=== PATIENT | female | born 1975 | race Two or more races ===

== ENCOUNTER 2022-07-04 14:48 | Emergency (ER) | payer MEDICAID ==
[~2022-07-04] VITALS: Ht 154.9 cm; Wt 65.2 kg
[2022-07-04 15:38] LABS: Basophils # (auto) 0 10 ^3/uL (0-0.2); Basophils % (auto) 0.4 % (0.0-2.0); Eosinophils # (auto) 0.1 10 ^3/uL (0-0.8); Eosinophils % (auto) 1.6 % (0.0-7.0); Hemoglobin 12.2 g/dL (12.2-16.2); Lymphocytes # (auto) 1.7 10 ^3/uL (0.4-5.4); Lymphocytes % (auto) 31.4 % (10.0-50.0); Mean Corpuscular Hemoglobin 28.7 pg (28.0-32.0); Mean Corpuscular Hgb Conc. 33.1 g/dL (32.0-36.0); Mean Corpuscular Volume 86.8 fL (80.0-100.0); Monocytes # (auto) 0.7 10 ^3/uL (0-1.3); Monocytes % (auto) 12.4 % (0.0-12.0); Neutrophils % (auto) 54.2 % (37.0-80.0); Nucleated Red Blood Cells % 0.2 %; Red Blood Cells 4.26 10^6/uL (4.0-5.20); Red Cell Distribution Width 15.1 % (11.8-14.3); White Blood Cell 5.5 10^3/uL (4.4-10.8)
[2022-07-04 15:55] LABS: Calcium 8.5 mg/dL (8.5-10.1); Potassium 3.6 mmol/L (3.5-5.1)
[2022-07-04 15:59] LABS: BUN/Creatinine Ratio 20.3; Bilirubin, Total 0.3 mg/dL (0.2-1.0)
[2022-07-04 16:03] LABS: Urine Bacteria FEW /hpf (None Seen); Urine Blood Negative /uL (Negative); Urine Specific Gravity 1.008 (1.001-1.035); Urine WBC 1 /hpf (0 - 5)
[2022-07-04 17:01] VITALS: BP 130/89
== END 2022-07-04 17:02 | disposition home or self-care (01) ==
LOC: ER 14:48
DX: R07.89 Other chest pain (principal); F41.9 Anxiety disorder, unspecified; R00.2 Palpitations
CPT/HCPCS: 36415; 71045; 80053; 81001; 83880; 84484; 85025; 93005

== ENCOUNTER 2022-07-07 17:15 | Emergency (ER) | payer MEDICAID ==
[~2022-07-07] VITALS: Ht 154.9 cm; Wt 65.0 kg
[2022-07-07] MEDS ORDERED: ACETAMINOPHEN 500 MG TAB PO ONE (18:15)
[2022-07-07 19:03] LABS: Basophils # (auto) 0 10 ^3/uL (0-0.2); Basophils % (auto) 0.4 % (0.0-2.0); Eosinophils # (auto) 0.1 10 ^3/uL (0-0.8); Eosinophils % (auto) 1.1 % (0.0-7.0); Hematocrit 37.3 % (36.0-46.0); Hemoglobin 11.9 g/dL (12.2-16.2); Lymphocytes # (auto) 1.6 10 ^3/uL (0.4-5.4); Lymphocytes % (auto) 25.6 % (10.0-50.0); Mean Corpuscular Hemoglobin 27.7 pg (28.0-32.0); Mean Corpuscular Hgb Conc. 31.8 g/dL (32.0-36.0); Mean Corpuscular Volume 87.1 fL (80.0-100.0); Monocytes # (auto) 0.6 10 ^3/uL (0-1.3); Monocytes % (auto) 10.1 % (0.0-12.0); Neutrophils # (auto) 3.8 10 ^3/uL (1.6-8.6); Neutrophils % (auto) 62.8 % (37.0-80.0); Nucleated Red Blood Cells % 0.1 %; Red Blood Cells 4.28 10^6/uL (4.0-5.20); Red Cell Distribution Width 15.7 % (11.8-14.3); White Blood Cell 6.1 10^3/uL (4.4-10.8)
[2022-07-07 19:18] LABS: Albumin 3.7 g/dL (3.4-5.0); BUN/Creatinine Ratio 47.8; Calcium 9.3 mg/dL (8.5-10.1); Magnesium 2.2 mg/dL (1.6-2.6); Potassium 3.8 mmol/L (3.5-5.1)
[2022-07-07 19:21] LABS: Bilirubin, Total 0.3 mg/dL (0.2-1.0); Total Protein 6.6 g/dL (6.4-8.2)
[2022-07-07 20:07] LABS: Partial Thromboplastin Time 24.4 sec (24.6-33.4)
[2022-07-08] MEDS ORDERED: ACET-1079 PO (00:09)
[2022-07-08] MEDS ORDERED: FAMO20TA10 PO (00:09)
[2022-07-08 01:13] VITALS: BP 138/79
== END 2022-07-08 01:19 | disposition home or self-care (01) ==
LOC: ER 17:23
DX: K52.89 Other specified noninfective gastroenteritis and colitis (principal); M25.561 Pain in right knee; K59.00 Constipation, unspecified; Z20.822 Contact with and (suspected) exposure to COVID-19
CPT/HCPCS: 36415; 71250; 73562; 74176; 80053; 83605; 83735; 83880; 84484; 85025; 85610; 85730; 87040; 87426; 87804; 93005

== ENCOUNTER 2023-01-27 16:01 | Inpatient (IN) | payer MEDICAID ==
[~2023-01-27] VITALS: Ht 154.9 cm; Wt 70.4 kg
[~2023-01-27 16:01] MED LIST: ACET-1079 PO; FAMO20TA10 PO
[2023-01-27 16:33] LABS: Basophils # (auto) 0 10 ^3/uL (0-0.2); Basophils % (auto) 0.7 % (0.0-2.0); Eosinophils # (auto) 0.2 10 ^3/uL (0-0.8); Eosinophils % (auto) 2.7 % (0.0-7.0); Hematocrit 38.1 % (36.0-46.0); Hemoglobin 12.5 g/dL (12.2-16.2); Lymphocytes % (auto) 34.3 % (10.0-50.0); Mean Corpuscular Hemoglobin 29.2 pg (28.0-32.0); Mean Corpuscular Hgb Conc. 32.9 g/dL (32.0-36.0); Mean Corpuscular Volume 88.9 fL (80.0-100.0); Monocytes # (auto) 0.4 10 ^3/uL (0-1.3); Monocytes % (auto) 6.1 % (0.0-12.0); Neutrophils # (auto) 3.3 10 ^3/uL (1.6-8.6); Neutrophils % (auto) 56.2 % (37.0-80.0); Nucleated Red Blood Cells % 0.2 %; Red Blood Cells 4.28 10^6/uL (4.0-5.20); Red Cell Distribution Width 16.2 % (11.8-14.3); White Blood Cell 5.8 10^3/uL (4.4-10.8)
[2023-01-27] MEDS ORDERED: NITROGLYCERIN 0.4 MG SL TAB SL ONE (16:45)
[2023-01-27] MEDS ORDERED: ASPirin 325 MG TAB PO ONE ×2 (16:45→21:15)
[2023-01-27 16:49] LABS: Albumin 3.6 g/dL (3.4-5.0); Calcium 8.4 mg/dL (8.5-10.1); Magnesium 2.7 mg/dL (1.6-2.6); Potassium 3.8 mmol/L (3.5-5.1)
[2023-01-27 16:52] LABS: BUN/Creatinine Ratio 16.9 (10.0-20.0); Bilirubin, Total 0.2 mg/dL (0.2-1.0); Total Protein 6.7 g/dL (6.4-8.2)
[2023-01-27 16:56] LABS: INR 1.02 (0.9-1.15); Partial Thromboplastin Time 26.7 SEC (24.5-34.5); Prothrombin Time 10.7 sec (9.3-11.8)
[2023-01-27] MEDS ORDERED: NITROGLYCERIN 0.4 MG SL TAB SL PRN (19:15)
[2023-01-27] MEDS ORDERED: ONDANSETRON HCL 4 MG/2 ML VIAL IV PRN (19:15)
[2023-01-27] MEDS ORDERED: MORPHINE SULFATE 4 MG/ML SYR/VIAL IV PRN (19:15)
[2023-01-27] MEDS ORDERED: ENOXAPARIN SOD 80 MG/0.8ML SYRINGE SC SCH (20:00)
[2023-01-27] MEDS ORDERED: ACETAMINOPHEN 325 MG TAB PO ONE (21:15)
[2023-01-27] MEDS ORDERED: ATORVASTATIN 20 MG TAB PO SCH (22:00)
[2023-01-28 04:45] LABS: Basophils # (auto) 0 10 ^3/uL (0-0.2); Basophils % (auto) 0.6 % (0.0-2.0); Eosinophils # (auto) 0.2 10 ^3/uL (0-0.8); Eosinophils % (auto) 4.2 % (0.0-7.0); Hematocrit 37.7 % (36.0-46.0); Hemoglobin 12.3 g/dL (12.2-16.2); Lymphocytes # (auto) 2.7 10 ^3/uL (0.4-5.4); Lymphocytes % (auto) 47.6 % (10.0-50.0); Mean Corpuscular Hemoglobin 29.3 pg (28.0-32.0); Mean Corpuscular Hgb Conc. 32.8 g/dL (32.0-36.0); Mean Corpuscular Volume 89.6 fL (80.0-100.0); Monocytes # (auto) 0.4 10 ^3/uL (0-1.3); Monocytes % (auto) 6.7 % (0.0-12.0); Neutrophils # (auto) 2.4 10 ^3/uL (1.6-8.6); Neutrophils % (auto) 40.9 % (37.0-80.0); Nucleated Red Blood Cells % 0.2 %; Red Blood Cells 4.21 10^6/uL (4.0-5.20); Red Cell Distribution Width 16.1 % (11.8-14.3); White Blood Cell 5.8 10^3/uL (4.4-10.8)
[2023-01-28 05:09] LABS: Albumin 3.5 g/dL (3.4-5.0); Calcium 8.7 mg/dL (8.5-10.1); Potassium 3.8 mmol/L (3.5-5.1)
[2023-01-28 05:13] LABS: BUN/Creatinine Ratio 18.8 (10.0-20.0); Bilirubin, Total 0.3 mg/dL (0.2-1.0); Total Protein 7.1 g/dL (6.4-8.2)
[2023-01-28] MEDS ORDERED: ACETAMINOPHEN 500 MG TAB PO PRN ×2 (10:45→14:45)
[2023-01-28] MEDS: ASPirin 81 mg TAB PO SCH (10:52)
[2023-01-28] MEDS: DOCUSATE SOD 100 MG CAP PO SCH (10:52)
[2023-01-28] MEDS ORDERED: ONDANSETRON HCL 4 MG/2 ML VIAL IV PRN (14:45)
[2023-01-28] MEDS ORDERED: PANTOPRAZOLE 40 MG TAB PO ONE (14:45)
[2023-01-28] MEDS ORDERED: MORPHINE SULFATE INJ 2 MG/ml SYRG IV PRN (14:45)
[2023-01-28 14:54] LABS: Urine Bacteria FEW /hpf (None Seen); Urine Blood Negative /uL (Negative); Urine Clarity HAZY (Clear); Urine Color Yellow (Yellow); Urine Mucus FEW (None Seen); Urine Protein, UAD Negative (Negative); Urine Specific Gravity 1.017 (1.001-1.035); Urine Urobilinogen Normal (Negative); Urine WBC 8 /hpf (0 - 5)
[2023-01-28 15:07] LABS: Alcohol, Urine < 3.0 mg/dL (0-10); Amphetamine Screen, Urine POSITIVE (NEGATIVE); Barbiturate Scree,Urine NEGATIVE (NEGATIVE); Benzodiazephine Screen, Urine NEGATIVE (NEGATIVE); Cannabinoid Screen, Urine NEGATIVE (NEGATIVE); Cocaine Screen, Urine NEGATIVE (NEGATIVE); Opiate Scree,Urine NEGATIVE (NEGATIVE); Phencyclidine Screen, Urine NEGATIVE (NEGATIVE)
[2023-01-28] MEDS: HYDROcodone-ACET 5/325MG TAB PO PRN ×2 (15:44→23:20)
[2023-01-28 16:01] LABS: Cholesterol 147 mg/dL (< 200)
[2023-01-28 16:03] LABS: HDL Cholesterol 66 mg/dL (40-59); LDL Cholesterol 75 mg/dL (< 100); Triglycerides 50 mg/dL (< 150)
[2023-01-28 20:05] VITALS: PULSE 68; RESP 13; O2SAT 97
[2023-01-28 23:51] VITALS: BP 133/93; PULSE 66; RESP 17; TEMP 98; O2SAT 99
[2023-01-29] VITALS (9 sets, daily range): BP systolic 129–154; BP diastolic 78–96; PULSE 63–96; RESP 17–20; TEMP 36.7; O2SAT 87–99
[2023-01-29] MEDS ORDERED: METH5TAB98 PO (01:18)
[2023-01-29] MEDS ORDERED: FUR20T PO (01:18)
[2023-01-29] MEDS ORDERED: ASPI-325 PO (01:18)
[2023-01-29] MEDS ORDERED: LORA-483 PO (01:18)
[2023-01-29] MEDS ORDERED: SUMA25TA2 PO (01:18)
[2023-01-29] MEDS ORDERED: LEVO50TA7 PO (01:18)
[2023-01-29] MEDS ORDERED: OMEP1CAP70 PO (01:18)
[2023-01-29] MEDS ORDERED: MECL25CH20 PO (01:18)
[2023-01-29] MEDS: HYDROcodone-ACET 5/325MG TAB PO PRN (06:11)
[2023-01-29] MEDS: DOCUSATE SOD 100 MG CAP PO SCH (09:12)
[2023-01-29] MEDS: ASPirin 81 mg TAB PO SCH (09:12)
[2023-01-29] MEDS ORDERED: PANTOPRAZOLE 40 MG TAB PO SCH (10:00)
[2023-01-29] MEDS ORDERED: ADENOSINE 59 MG in GIVE UN-DILUTED 0 ML IV STA (11:04)
[2023-01-30] MEDS: HYDROcodone-ACET 5/325MG TAB PO PRN ×2 (01:08→08:56)
[2023-01-30 05:00] VITALS: BP 133/91; PULSE 69; RESP 20; TEMP 98.6; O2SAT 98
[2023-01-30 08:00] VITALS: PULSE 70
[2023-01-30] MEDS: ASPirin 81 mg TAB PO SCH (08:55)
[2023-01-30] MEDS: DOCUSATE SOD 100 MG CAP PO SCH (08:56)
[2023-01-30 09:00] VITALS: BP 132/86; PULSE 64; RESP 20; TEMP 98.1; O2SAT 99
[2023-01-30] MEDS ORDERED: cefTRIAXone 1GM/50ML D5W 50 ML IV SCH (09:00)
[2023-01-30 09:01] LABS: Basophils # (auto) 0 10 ^3/uL (0-0.2); Basophils % (auto) 0.4 % (0.0-2.0); Eosinophils # (auto) 0.1 10 ^3/uL (0-0.8); Hemoglobin 13.9 g/dL (12.2-16.2); Lymphocytes % (auto) 31.8 % (10.0-50.0); Mean Corpuscular Hemoglobin 29.6 pg (28.0-32.0); Mean Corpuscular Hgb Conc. 33.2 g/dL (32.0-36.0); Mean Corpuscular Volume 89.1 fL (80.0-100.0); Monocytes # (auto) 0.3 10 ^3/uL (0-1.3); Monocytes % (auto) 4.1 % (0.0-12.0); Neutrophils % (auto) 61.7 % (37.0-80.0); Nucleated Red Blood Cells % 0.1 %; Red Blood Cells 4.72 10^6/uL (4.0-5.20); Red Cell Distribution Width 16.1 % (11.8-14.3); White Blood Cell 6.4 10^3/uL (4.4-10.8)
[2023-01-30 09:22] LABS: Calcium 9.1 mg/dL (8.5-10.1); Potassium 3.6 mmol/L (3.5-5.1)
[2023-01-30] MEDS ORDERED: NITR-52 PO (09:22)
[2023-01-30 09:26] LABS: BUN/Creatinine Ratio 17.2 (10.0-20.0)
[2023-01-30] MEDS ORDERED: PANTOPRAZOLE 40 MG TAB PO SCH (10:00)
[2023-01-30 13:00] VITALS: BP 122/86; PULSE 70; RESP 16; TEMP 98.2; O2SAT 97
[2023-01-30 14:34] VITALS: BP 122/86; PULSE 70; RESP 18; TEMP 98.2; O2SAT 97
== END 2023-01-30 16:10 | disposition home or self-care (01) | DRG 198 ==
LOC: ER 16:01 → TELE 19:19 → TELE-WESTW 01-28 23:02
PROVIDERS: ADMIT Internal Medicine Pulmonary Disease
DX: I20.1 Angina pectoris with documented spasm (principal); D64.9 Anemia, unspecified; N30.00 Acute cystitis without hematuria; E03.9 Hypothyroidism, unspecified; E66.9 Obesity, unspecified; F32.A Depression, unspecified; F41.0 Panic disorder [episodic paroxysmal anxiety]; I10 Essential (primary) hypertension; I45.10 Unspecified right bundle-branch block; H53.8 Other visual disturbances; K21.9 Gastro-esophageal reflux disease without esophagitis; Z79.1 Long term (current) use of non-steroidal anti-inflammatories (NSAID); Z79.899 Other long term (current) drug therapy; Z98.891 History of uterine scar from previous surgery; Z68.29 Body mass index [BMI] 29.0-29.9, adult; F15.90 Other stimulant use, unspecified, uncomplicated
CPT/HCPCS: 36415; 71045; 78452; 80048; 80053; 80061; 80307; 81001; 83690; 83735; 83880; 84439; 84443; 84484; 84702; 85025; 85379; 85610; 85730; 93005; 93017; 93306; G0378; J0153; J0696

== ENCOUNTER 2024-12-17 17:13 | Emergency (ER) | payer MEDICAID, OTHER ==
[~2024-12-17] VITALS: Ht 154.9 cm; Wt 63.8 kg
[~2024-12-17 17:13] MED LIST changes: +ASPI-325 PO; +FURO20TA4 PO; +LEVO50TA7 PO; +LORA-483 PO; +MECL25CH20 PO; +METH5TAB98 PO; +NITR-52 PO; +OMEP1CAP70 PO; +SUMA25TA2 PO
--- NOTE | 2024-12-17 17:32 | ECG ---
[facility] Test Date: 2024-12-17 Test Time: 17:28:40 Pat Name: SHI AMAYA Department: ER Room: Gender: F Bacon Slicer: SU : 1975 Requested By: NAHUM HUANG Order Number: [id number] Reading MD: Rob Corral Measurements Intervals [place] Rate: 97 P: 67 W[place]: 130 QRS: -61 QRSD: 92 T: -9 QT: 377 QTc: 479 Interpretive Statements Sinus rhythm Left atrial enlargement LAD, consider left anterior fascicular block Low voltage, precordial leads RSR' in V1 or V2, right VCD or RVH Probable anteroseptal infarct, old Borderline T abnormalities, inferior leads Electronically Signed On 12-20-2024 20:02:18 PDT by Rob Corral Please click the below link to view image of tracing.
--- NOTE | 2024-12-17 17:53 | ED.PDOC ---
HPI Comments 49 y/o F, with no prior cardiac history presents to the ED for CC of chest pain. Patient states, she has been experiencing left sided chest pain that radiates to her back onset, this morning (12/18/23). Patient describes, pain to be burning in sensation. Patient comments, on similar symptoms in the past and being followed by a ticket sales agent; endorses last cardiology appt to have been this Sunday (12/15/24) was told to have an unremarkable cardiac workup. Patient denies shortness of breath, left arm numbness, dizziness, nausea, or vomiting. No other symptoms or modifying factors present at this time. Chief Complaint: Chest Pain Time Seen by MD: 17:45 Primary Care Provider: LUNDY Reviewed Notes: Nurses Notes, Medications, Allergies Allergies: Coded Allergies: NO KNOWN ALLERGIES (Unverified , 07/04/22) Home Meds Active Scripts Nitrofurantoin (Nitrofurantoin) 100 Mg Cap, 1 CAP PO BID, #10 CAP Prov:BRETT VILLELA MD 01/30/23 Acetaminophen (Tylenol) 325 Mg Tb, 500 MG PO TIDPRN PRN for 10 Days, #47 TAB Prov:GREGG SINGH DO 07/08/22 Famotidine (PEPCID TABLET) 20 Mg Tb, 1 TAB PO BID for 15 Days, #30 TAB 3 Refills Prov:GREGG SINGH DO 07/08/22 Reported Medications Omeprazole (Omeprazole Dr) 20 Mg Cap, 1 CAP PO BID 01/29/23 Methimazole (Methimazole) 5 Mg Tab, 1 TAB PO DAILY 01/29/23 Loratadine (CLARITIN TABLET) 10 Mg Tb, 1 TAB PO DAILY 01/29/23 Levothyroxine Sodium (Levothyroxine Sodium) 50 Mcg Tab, 1 TAB PO DAILY 01/29/23 Sumatriptan Succinate (Sumatriptan Succinate) 25 Mg Tab, PO 01/29/23 Meclizine Hcl (Meclizine Hcl) 25 Mg Chw, 1 TAB PO TID 01/29/23 Aspirin (Aspirin Low Dose) 81 Mg Tab, 1 TAB PO DAILY 01/29/23 Furosemide (Furosemide) 20 Mg Tab, 1 TAB PO BID 01/29/23 Information Source: Patient Mode of Arrival: Ambulatory Severity: Moderate Timing: Hours Duration: Since onset Prehospital treatment: None Location: Chest (L) Radiation: Back Quality: Burning Onset: At Rest Cardiac Risk Factors: None PE Risk Factors: None History of: None Modifying Factors: Nothing Associated Signs and Symptoms: None Past Medical History PAST MEDICAL HISTORY: Anxiety, Depression 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 History Family History Family History: Unknown Social History Smoker: Non-Smoker Alcohol: Denies ETOH Use Drugs: Denies Drug Use Lives In: Home Constitutional: denies: chills, diaphoresis, fatigue, fever, malaise, sweats, weakness, others EENTM: denies: blurred vision, double vision, ear bleeding, ear discharge, ear drainage, ear pain, ear ringing, eye pain, eye redness, hearing loss, mouth pain, mouth swelling, nasal discharge, nose bleeding, nose congestion, nose pain, photophobia, tearing, throat pain, throat swelling, voice changes, others Respiratory: denies: cough, hemoptysis, orthopnea, SOB at rest, shortness of breath, SOB with excertion, stridor, wheezing, others Cardiovascular: reports: chest pain; denies: dizzy spells, diaphoresis, Dyspnea on exertion, edema, irregular heart beat, left arm pain, lightheadedness, palpitations, PND, syncope, others Gastrointestinal: denies: abdomen distended, abdominal pain, blood streaked bowels, constipated, diarrhea, dysphagia, difficulty swallowing, hematemesis, melena, nausea, poor appetite, poor fluid intake, rectal bleeding, rectal pain, vomiting, others Genitourinary: denies: abnormal vagina bleeding, burning, dyspareunia, dysuria, flank pain, frequency, hematuria, incontinence, pain, , vagina discharge, urgency, others Neurological: denies: dizziness, fainting, headache, left sided numbness, left sided weakness, numbness, paresthesia, pre-existing deficit, right sided numbness, right sided weakness, seizure, speech problems, tingling, tremors, weakness, others Musculoskeletal: denies: back pain, gout, joint pain, joint swelling, muscle pain, muscle stiffness, neck pain, others Integumetry: denies: bruises, change in color, change in hair/nails, dryness, laceration, lesions, lumps, rash, wounds, others Allergic/Immunocompromised: denies: Difficulty Healing, Frequent Infections, Hives, Itching, others Hematologic/Lymphatic: denies: anemia, blood clots, easy bleeding, easy bruising, swollen glands, others Endocrine: denies: excessive hunger, excessive sweating, excessive thirst, excessive urination, flushing, intolerance to cold, intolerance to heat, unexplained weight gain, unexplained weight loss, others Psychiatric: denies: anxiety, bipolar disorder, depression, hopeless, panic disorder, schizophrenia, sleepless, suicidal, others All Other Systems: Reviewed and Negative Physical Exam General Appearance: No Apparent Distress, Normal HEENT: Normal ENT Inspection, Pharynx Normal Neck: Full Range of Motion, Non-Tender, Normal, Normal Inspection Respiratory: Chest Non-Tender, Lungs Clear, No Accessory Muscle Use, No Respiratory Distress, Normal Breath Sounds Cardiovascular: No Edema, No Murmur, No Gallop, Normal Peripheral Pulses, Regular Rate/Rhythm, Other (TENDERNESS TO LEFT TRAPEZIUS, PAIN NONREPRODUCIBLE) Breast Exam: Deferred Gastrointestinal: No Organomegaly, Non Tender, No Pulsatile Mass, Normal Bowel Sounds, Soft Genitalia: Deferred Pelvic: Deferred Rectal: Deferred Extremities: No calf tenderness, Normal capillary refill, Normal inspection, Normal range of motion, Non-tender, No pedal edema Musculoskeletal : Apperance: Normal Neurologic: Alert, rn recovery II-XII nml as Tested, No Motor Deficits, Normal Affect, Normal Mood, No Sensory Deficits Cerebellar Function: Normal Reflexes: Normal Skin: Dry, Normal Color, Warm Lymphatic: No Adenopathy Was a procedure done? Was a procedure done?: No CP Differential Dx Differential Diagnosis: Anxiety / Panic Attack Differential Diagnosis: Chest Wall Pain, Costochondritis, Esophageal reflux/spasm, Gastritis X-Ray, Labs, Meds, VS Vital Signs Date Time Temp Pulse Resp B/P (MAP) Pulse Ox O2 Delivery O2 Flow Rate FiO2 12/17/24 17:28 97 12/17/24 17:15 98.3 111 16 146/94 (111) 100 98.3 Lab Test 12/17/24 18:26 12/17/24 17:39 Range/Units Troponin I High Sensitivity 16 14 </=34 ng/L White Blood Count 7.0 4.4-10.8 10^3/uL Red Blood Count 4.20 4.0-5.20 10^6/uL Hemoglobin 14.0 12.2-16.2 g/dL Hematocrit 40.9 36.0-46.0 % Mean Corpuscular Volume 97.5 80.0-100.0 fL Mean Corpuscular Hemoglobin 33.3 H 28.0-32.0 pg Mean Corpuscular Hemoglobin Concent 34.1 32.0-36.0 g/dL Red Cell Distribution Width 15.1 H 11.8-14.3 % Platelet Count 287 140-450 10^3/uL Mean Platelet Volume 7.9 6.9-10.8 fL Neutrophils (%) (Auto) 70.0 37.0-80.0 % Lymphocytes (%) (Auto) 21.0 10.0-50.0 % Monocytes (%) (Auto) 8.6 0.0-12.0 % Eosinophils (%) (Auto) 0.2 0.0-7.0 % Basophils (%) (Auto) 0.2 0.0-2.0 % Neutrophils # (Auto) 4.9 1.6-8.6 10 ^3/uL Lymphocytes # (Auto) 1.5 0.4-5.4 10 ^3/uL Monocytes # (Auto) 0.6 0-1.3 10 ^3/uL Eosinophils # (Auto) 0 0-0.8 10 ^3/uL Basophils # (Auto) 0 0-0.2 10 ^3/uL Nucleated Red Blood Cells 0.0 % Sodium Level 141 136-145 mmol/L Potassium Level 2.9 L 3.5-5.1 mmol/L Chloride Level 102 98-107 mmol/L Carbon Dioxide Level 29 20-31 mmol/L Anion Gap 10 5-15 Blood Urea Nitrogen 7 L 9-23 mg/dL Creatinine 0.65 0.550-1.02 mg/dL Glomerular Filtration Rate Calc 108 >90 mL/min BUN/Creatinine Ratio 10.8 10.0-20.0 Serum Glucose 122 H 74-106 mg/dL Calcium Level 10.3 8.7-10.4 mg/dL [address] [address] Ph: [phone] DIAGNOSTIC IMAGING Diagnostic Imaging Report : [id number] Signed PATIENT: SHI AMAYA ACCT: [id number] UNIT: [id number] : 1975 LOC: ER ROOM / BED: / AGE / SEX: 49 / F ADM STATUS: REG ER SERVICE 39 ORDERING PHYSICIAN: TI HOOVER PROCEDURE(s): CXR1 - CHEST XRAY 1 VIEW REASON: cp ORDER NUMBER(s): [id number], ACCESSION NUMBER(s): [id number] EXAMINATION: Chest x-ray 1 view CLINICAL HISTORY: cp COMPARISON: XY CHEST PORTABLE on DOS: 01/27/23 FINDINGS: No dominant consolidations. The costophrenic angles appear clear. No sizable pleural effusion or pneumothorax identified. The cardiomediastinal silhouette appears within normal limits. IMPRESSION: No acute cardiopulmonary findings as visualized. ATED BY: MILES AGRAWAL MD DICTATED DATE/TIME: 12/17/241831 SIGNED BY: MILES AGRAWAL MD SIGNED DATE/TIME: 12/17/241831 CC: X-Ray, Labs, Meds, VS Comment Imaging: X-rays and CT scans were reviewed and interpreted by this provider, imaging shows no fractures and no pathological disease. Pending radiology review. Laboratory: Labs reviewed and interpreted by this provider. No significant abnormalities noted. Patient has prior medical visits reviewed. Med reconciliation performed Vital signs reviewed Time of 1ST Reevaluation: 18:15 Reevaluation 1ST: Unchanged Patient Education/Counseling: Diagnosis, Treatment, Need For Follow Up (Follow up with PCP next available appointment. Return to emergency department the next 24-48 hours if symptoms worsen.) Family Education/Counseling: No Family Present SEPSIS Sepsis Screen Date sepsis recognized/suspect: Dec 17, 2024 Time Sepsis recognized/suspect: 1722 Recent Procedure: No On Antibiotic Therapy: No Respiratory Rate >20: No Heart Rate >90: Yes Temp<36 C (96.8 F) or >38.3 C: No SBP <90 or MAP <65 mmHG: No New Acute Mental Status Change: No Is the patient on CPAP, BIPAP,: No Physician Orders Troponin-I Hs (12/17/24 20:24) Electrocardigram (12/17/24 18:24) Electrocardigram (12/17/24 20:24) Urinalysis (12/17/24 17:40) Chest Xray 1 View (12/17/24 17:40) Urinalysis (12/17/24 18:00) Vital Signs Date Time Temp Pulse Resp B/P (MAP) Pulse Ox O2 Delivery O2 Flow Rate FiO2 12/17/24 17:28 97 12/17/24 17:15 98.3 111 16 146/94 (111) 100 98.3 Laboratory Tests Test 12/17/24 17:39 White Blood Count 7.0 10^3/uL (4.4-10.8) Departure 1 Departure Time of Disposition: 20:30 Impression: Primary Impression: Chest pain Qualified Codes: R07.89 - Other chest pain Additional Impression: Anxiety Disposition: HOME / SELF CARE / HOMELESS Condition: Fair Discharged With: Self Critical Care Note Critical Care Time?: No Stability Stability form required: No Heart Score Heart Score: Heart Score Response (Comments) Value History Slightly Suspicious 0 EKG Normal 0 Age 45-64 1 Risk Factors No known risk factors 0 Troponin Normal limit 0 Total 1 I personally scribed for HOOVER,CHRISTOPHER E MEN'S GOLF COACH (DVRUICH) on 12/17/24 at 17:53. Electronically submitted by Blanca Salgado ([email or web address]). I personally scribed for HOOVER,CHRISTOPHER E MEN'S GOLF COACH (DVRUICH) on 12/17/24 at 17:59. Electronically submitted by Blanca Salgado ([email or web address]). I personally scribed for HOOVER,CHRISTOPHER E MEN'S GOLF COACH (DVRUICH) on 12/17/24 at 18:13. Electronically submitted by Blanca Salgado ([email or web address]). I personally scribed for HOOVER,CHRISTOPHER E MEN'S GOLF COACH (DVRUICH) on 12/17/24 at 18:38. Electronically submitted by Blanca Salgado ([email or web address]). HOOVER,CHRISTOPHER E MEN'S GOLF COACH Dec 17, 2024 17:53
[2024-12-17 18:04] LABS: Basophils # (auto) 0 10 ^3/uL (0-0.2); Basophils % (auto) 0.2 % (0.0-2.0); Eosinophils # (auto) 0 10 ^3/uL (0-0.8); Eosinophils % (auto) 0.2 % (0.0-7.0); Hematocrit 40.9 % (36.0-46.0); Lymphocytes # (auto) 1.5 10 ^3/uL (0.4-5.4); Mean Corpuscular Hemoglobin 33.3 pg (28.0-32.0); Mean Corpuscular Hgb Conc. 34.1 g/dL (32.0-36.0); Mean Corpuscular Volume 97.5 fL (80.0-100.0); Monocytes # (auto) 0.6 10 ^3/uL (0-1.3); Monocytes % (auto) 8.6 % (0.0-12.0); Neutrophils # (auto) 4.9 10 ^3/uL (1.6-8.6); Platelet Count (auto) 287 10^3/uL (140-450); Red Cell Distribution Width 15.1 % (11.8-14.3)
[2024-12-17 18:11] LABS: Chloride 102 mmol/L (98-107); Sodium 141 mmol/L (136-145)
[2024-12-17 18:12] LABS: Anion Gap 10 (5-15); Carbon Dioxide 29 mmol/L (20-31)
[2024-12-17 18:13] LABS: Calcium 10.3 mg/dL (8.7-10.4)
[2024-12-17 18:17] LABS: BUN/Creatinine Ratio 10.8 (10.0-20.0)
[2024-12-17 18:20] LABS: Blood Urea Nitrogen 7 mg/dL (9-23); Glucose 122 mg/dL (74-106); Potassium 2.9 mmol/L (3.5-5.1)
--- NOTE | 2024-12-17 18:34 | DVH ---
EXAMINATION: Chest x-ray 1 view CLINICAL HISTORY: cp COMPARISON: XY CHEST PORTABLE on DOS: 01/27/23 FINDINGS: No dominant consolidations. The costophrenic angles appear clear. No sizable pleural effusion or pne umothorax identified. The cardiomediastinal silhouette appears within normal limits. IMPRESSION: No acute cardiopulmonary findings as visualized.
[2024-12-17] MEDS: ALPRAZolam 0.5 MG TAB PO ONE (20:40)
[2024-12-17 20:45] VITALS: PULSE 94; RESP 19; O2SAT 97
[2024-12-17 21:46] VITALS: BP 144/96; PULSE 99; RESP 16; TEMP 98; O2SAT 99
--- NOTE | 2024-12-18 09:44 | ECG ---
[facility] Test Date: 2024-12-17 Test Time: 17:27:59 Pat Name: SHI AMAYA Department: ER Room: Gender: F Financial Aid Manager: SU : 1975 Requested By: NAHUM HUANG Order Number: [id number] Reading MD: Rob Corral Measurements Intervals [place] Rate: 106 P: 58 GA: 157 QRS: -65 QRSD: 77 T: -1 QT: 354 QTc: 471 Interpretive Statements Sinus tachycardia Ventricular premature complex LAE, consider biatrial enlargement Inferior infarct, old Probable anteroseptal infarct, old Electronically Signed On 12-20-2024 20:02:08 PDT by Rob Corral Please click the below link to view image of tracing.
== END 2024-12-17 22:02 | disposition home or self-care (01) ==
LOC: ER 17:13
DX: R07.89 Other chest pain (principal); F41.9 Anxiety disorder, unspecified; F32.A Depression, unspecified; Z98.890 Other specified postprocedural states; Z79.899 Other long term (current) drug therapy; Z79.890 Hormone replacement therapy; Z79.82 Long term (current) use of aspirin
CPT/HCPCS: 36415; 71045; 80048; 84484; 85025; 93005

== ENCOUNTER 2025-01-04 10:36 | Inpatient (IN) | payer OTHER ==
[~2025-01-04] VITALS: Ht 154.9 cm; Wt 66.0 kg
--- NOTE | 2025-01-04 11:20 | ED.PDOC ---
HPI (NEURO) HPI Comments 49 y.o female with PMHx of HTN, presents to the ED for a chief complaint of dizziness associated with left sided neck pain radiating to her shoulder, left arm numbness, blurred vision, chest pain, and a generalized headache that started at 0400 today. Patient reports symptoms all presented spontaneously at the same time, states similar episode in the past but never went to the ED for evaluation. Patient describes chest pain as a burning sensation that is non radiating, constant and has no alleviating or worsening factors. Patient also mentions left arm numbness is no radiating to her left shoulder and up her neck. She denies any recent injuries, SOB, vomiting. Chief Complaint: Headache Time Seen by MD: 11:15 Primary Care Provider: NONE Reviewed Notes: Nurses Notes, Medications, Allergies Information Source: Patient Mode of Arrival: cane Severity: Moderate Dizziness/Weakness Severity: Does not affect activitie Headache Severity: Moderate Timing: Hours Duration: Since onset Headache Location: Generalized Numbness Location: (L) Arm Onset: At rest Circumstances: Spontaneous History of: Hypertension Modifying factors: Nothing Associated Signs and Symptoms: Headache, Nausea, Chest Pain, Blurred Vision Past Medical History PAST MEDICAL HISTORY: Anxiety, Depression 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 Pertinent EDGE BRUSHER History Family History Family History: Unknown Social History Smoker: Non-Smoker Alcohol: Denies ETOH Use Drugs: Denies Drug Use Lives In: Home Constitutional: denies: chills, diaphoresis, fatigue, fever, malaise, sweats, weakness, others EENTM: reports: blurred vision; denies: double vision, ear bleeding, ear discharge, ear drainage, ear pain, ear ringing, eye pain, eye redness, hearing loss, mouth pain, mouth swelling, nasal discharge, nose bleeding, nose congestion, nose pain, photophobia, tearing, throat pain, throat swelling, voice changes, others Respiratory: denies: cough, hemoptysis, orthopnea, SOB at rest, shortness of breath, SOB with excertion, stridor, wheezing, others Cardiovascular: reports: chest pain; denies: dizzy spells, diaphoresis, Dyspnea on exertion, edema, irregular heart beat, left arm pain, lightheadedness, palpitations, PND, syncope, others Gastrointestinal: reports: nausea; denies: abdomen distended, abdominal pain, blood streaked bowels, constipated, diarrhea, dysphagia, difficulty swallowing, hematemesis, melena, poor appetite, poor fluid intake, rectal bleeding, rectal pain, vomiting, others Genitourinary: denies: abnormal vagina bleeding, burning, dyspareunia, dysuria, flank pain, frequency, hematuria, incontinence, pain, , vagina discharge, urgency, others Neurological: reports: headache, numbness (left arm ); denies: dizziness, fainting, left sided numbness, left sided weakness, paresthesia, pre-existing de ficit, right sided numbness, right sided weakness, seizure, speech problems, tingling, tremors, weakness, others Musculoskeletal: reports: neck pain (left sided); denies: back pain, gout, joint pain, joint swelling, muscle pain, muscle stiffness, others Integumetry: denies: bruises, change in color, change in hair/nails, dryness, laceration, lesions, lumps, rash, wounds, others Allergic/Immunocompromised: denies: Difficulty Healing, Frequent Infections, Hives, Itching, others Hematologic/Lymphatic: denies: anemia, blood clots, easy bleeding, easy bruising, swollen glands, others Endocrine: denies: excessive hunger, excessive sweating, excessive thirst, excessive urination, flushing, intolerance to cold, intolerance to heat, unexplained weight gain, unexplained weight loss, others Psychiatric: denies: anxiety, bipolar disorder, depression, hopeless, panic disorder, schizophrenia, sleepless, suicidal, others All Other Systems: Reviewed and Negative Physical Exam General Appearance: Moderate Distress HEENT: Normal ENT Inspection, Pharynx Normal, TMs Normal Neck: Full Range of Motion, Non-Tender, Normal, Normal Inspection Respiratory: Chest Non-Tender, Lungs Clear, No Accessory Muscle Use, No Respiratory Distress, Normal Breath Sounds Cardiovascular: No Edema, No JVD, No Murmur, No Gallop, Normal Peripheral Pulses, Regular Rate/Rhythm Breast Exam: Deferred Gastrointestinal: No Organomegaly, Non Tender, No Pulsatile Mass, Normal Bowel Sounds, Soft Genitalia: Deferred Pelvic: Deferred Rectal: Deferred Extremities: No calf tenderness, Normal capillary refill, No pedal edema Musculoskeletal : Apperance: Normal Neurologic: Alert, shuffle board operator II-XII nml as Tested, Motor Weakness, Normal Affect, Normal Mood, No Sensory Deficits Cerebellar Function: Normal Reflexes: Normal Skin: Dry, Normal Color, Warm Lymphatic: No Adenopathy EKG EKG : Pulse Rate (adult): 102 Cardiac Rhythm: ST Hypertrophy: RVH Was a procedure done? Was a procedure done?: No Differential Diagnosis (SZ) CVA: CVA, Delirium Tremens, Electrolyte Imbalance, Encephalopathy, TIA General Weakness: Dehydration, Electrolyte imbalance, Labyrinthitis, Meniere's disease, TIA, Vertigo: central, Vertigo: peripheral, Vestibular neuronitis Headache: Cluster, Migraine, Subarachnoid Hemorrhage, Post-Traumatic, Sinusitis X-Ray, Labs, Meds, VS Vital Signs Date Time Temp Pulse Resp B/P (MAP) Pulse Ox O2 Delivery O2 Flow Rate FiO2 01/04/25 11:20 102 01/04/25 11:05 102 01/04/25 11:04 98.6 103 16 142/98 (113) 97 98.6 Lab Test 01/04/25 13:13 01/04/25 12:00 01/04/25 11:02 Range/Units Troponin I High Sensitivity Pending 9 </=34 ng/L White Blood Count 11.3 H 4.4-10.8 10^3/uL Red Blood Count 4.49 4.0-5.20 10^6/uL Hemoglobin 14.9 12.2-16.2 g/dL Hematocrit 44.0 36.0-46.0 % Mean Corpuscular Volume 98.0 80.0-100.0 fL Mean Corpuscular Hemoglobin 33.1 H 28.0-32.0 pg Mean Corpuscular Hemoglobin Concent 33.8 32.0-36.0 g/dL Red Cell Distribution Width 14.8 H 11.8-14.3 % Platelet Count 343 140-450 10^3/uL Mean Platelet Volume 7.8 6.9-10.8 fL Neutrophils (%) (Auto) 76.9 37.0-80.0 % Lymphocytes (%) (Auto) 15.1 10.0-50.0 % Monocytes (%) (Auto) 7.3 0.0-12.0 % Eosinophils (%) (Auto) 0.3 0.0-7.0 % Basophils (%) (Auto) 0.4 0.0-2.0 % Neutrophils # (Auto) 8.7 H 1.6-8.6 10 ^3/uL Lymphocytes # (Auto) 1.7 0.4-5.4 10 ^3/uL Monocytes # (Auto) 0.8 0-1.3 10 ^3/uL Eosinophils # (Auto) 0 0-0.8 10 ^3/uL Basophils # (Auto) 0 0-0.2 10 ^3/uL Nucleated Red Blood Cells 0.0 % Sodium Level 138 136-145 mmol/L Potassium Level 3.7 3.5-5.1 mmol/L Chloride Level 103 98-107 mmol/L Carbon Dioxide Level 27 20-31 mmol/L Anion Gap 8 5-15 Blood Urea Nitrogen 15 9-23 mg/dL Creatinine 0.67 0.550-1.02 mg/dL Glomerular Filtration Rate Calc 107 >90 mL/min BUN/Creatinine Ratio 22.4 H 10.0-20.0 Serum Glucose 123 H 74-106 mg/dL Calcium Level 10.3 8.7-10.4 mg/dL POC Glucose 162 H 70-106 mg/dl CAT scan of the head is without normal limits. The chest x-ray is negative The patient's CBC shows an elevated white blood cell count 11.3 The rest of the CBC is within normal limits The troponin level is nine The chemistry panel is within normal limits At this time, the patient is being admitted to the hospitalist. The patient is still having persistent chest pain Because the CAT scan of the head is negative the patient was given aspirin here in the emergency department's The patient is admitted Images Reviewed?: Images reviewed and evaluated by me Time of 1ST Reevaluation: 11:16 Reevaluation 1ST: Unchanged Patient Education/Counseling: Diagnosis, Treatment, Prognosis Family Education/Counseling: No Family Present Departure 1 Departure Time of Disposition: 13:42 Impression: Primary Impression: Acute chest pain Disposition: 09 ADMITTED INPATIENT Admit to: Tele Condition: Fair Critical Care Note Critical Care Time?: No Stability Stability form required: Yes Unstable for transfer: Telemetry monitoring (Telemetry monitoring required), ED Physician Assesment (Clinical assesment) Heart Score Heart Score: Heart Score Response (Comments) Value History Slightly Suspicious 0 EKG Repolarization Disturb 1 Age 45-64 1 Risk Factors 1 or 2 risk factors 1 Troponin Normal limit 0 Total 3 I personally scribed for DAVID ELIZABETH MD ([email or web address]) on 01/04/25 at 11:20. Electronically submitted by Rachna Snell ([facility]). DAVID ELIZABETH MD Jan 04, 2025 11:20
--- NOTE | 2025-01-04 12:15 | DVH ---
CT HEAD WITHOUT CONTRAST Indication: pain EXAM DATE: 01/04/2025 11:23 AM COMPARISON: None TECHNIQUE: CT of the head without intravenous contrast. RADIATION DOSE: CTDIvol: 51.22 mGy, DLP: 907.19 mGy*cm FINDINGS: There is no intracranial hemorrhage. There is no extra-axial fluid, mass, mass effect or midline shif t. The ventricles are midline and normal in size. Basilar cisterns are patent. Mayo-white differentia tion is maintained. The paranasal sinuses and mastoids are well-pneumatized. Imaged portion of the orbits are unremarkabl e. IMPRESSION: No intracranial hemorrhage or mass effect.
[2025-01-04 12:16] LABS: Hematocrit 44.0 % (36.0-46.0); Hemoglobin 14.9 g/dL (12.2-16.2); Mean Corpuscular Hemoglobin 33.1 pg (28.0-32.0); Mean Corpuscular Volume 98.0 fL (80.0-100.0); Nucleated Red Blood Cells % 0.0 %
[2025-01-04 12:23] LABS: Chloride 103 mmol/L (98-107); Potassium 3.7 mmol/L (3.5-5.1); Sodium 138 mmol/L (136-145)
[2025-01-04 12:24] LABS: Anion Gap 8 (5-15); Calcium 10.3 mg/dL (8.7-10.4); Carbon Dioxide 27 mmol/L (20-31)
[2025-01-04 12:29] LABS: BUN/Creatinine Ratio 22.4 (10.0-20.0); Blood Urea Nitrogen 15 mg/dL (9-23)
[2025-01-04 12:32] LABS: Glucose 123 mg/dL (74-106)
--- NOTE | 2025-01-04 12:41 | DVH ---
CHEST RADIOGRAPH Indication: pain Technique: XY CHEST TWO VIEWS ROUTINE Comparison: None FINDINGS: The cardiac silhouette is unremarkable. The lungs demonstrate no pulmonary airspace consolidation. Th e pulmonary vasculature is unremarkable. There is no pleural effusion.. There is no pneumothorax. IMPRESSION: No pulmonary airspace consolidation.
[2025-01-04 18:21] LABS: Urine Protein, UAD Negative (Negative)
--- NOTE | 2025-01-04 22:16 | DVHHP2 ---
History of Present Illness History of Present Illness Patient is 49 years old female with past medical history of hypertension, H/O hypothyroidism- not taking any medication, anxiety, depression came with a complaint of left-sided neck pain with left arm numbness. As per patient she has been having left-sided neck pain and left arm numbness started around 4:00 a.m. in the morning. Neck pain was 6/10, gradual onset, no relieving factor, radiating to the left arm with numbness. Patient also endorsed some headache, 5/10, pressure-like, throbbing. On further inquiry patient also reports some blurry vision and dizziness but no loss of consciousness. On further discussion patient also reported drooling in the left side of the mouth but no active during was noted during history taking /physical examination . patient reported she had same symptom in 2021 but no specific diagnosis was given. on arrival patient was tachycardic with pulse 103, leukocytosis with WBC 11.7, jef trophilia 87%. Blood pressure 142/98, UDS negative, Troponin I within normal limit, chest x-ray no acute cardiopulmonary disease, CT head negative for acute intracranial abnormality. Past Medical History hypertension, hypothyroidism- not taking any medication, anxiety, depression Past Surgical History x3, appendectomy Family History None Past Social History Patient's history of amphetamine abuse, currently denying all, lives with and kids. Home medications losartan 25 mg, taking any levothyroxine Review of Systems Review of Systems Allergy- NKDA Patient was seen today at the bedside. Cardiovascular- deny acute chest pain or shortness of breath or cough or palpitation Respiratory denies cough or short of breath or wheezing Gastrointestinal- denies any rectal bleeding, nausea or vomiting Musculoskeletal-denies acute joint swelling or tenderness or redness Psychiatry- denies depression or SI or HI Skin- denies acute rash or purpura Allergies: Coded Allergies: NO KNOWN ALLERGIES (Unverified , 07/04/22) Medications Current Medications Medications Dose Ordered Sig/[place] Route Start Time Stop Time Status Last Admin Dose Admin Sodium Chloride 10 ml Q8HR IV 01/05/25 06:00 UNV Enoxaparin Sodium 40 mg DAILY SC 01/05/25 10:00 UNV Acetaminophen 650 mg Q6HP PRN PO 01/04/25 22:15 UNV Exam Vital Signs Vital Signs Date Time Temp Pulse Resp B/P (MAP) Pulse Ox O2 Delivery O2 Flow Rate FiO2 01/04/25 20:50 98.0 80 20 152/95 (114) 99 98.0 01/04/25 18:44 Room Air Exam General examination-awake, alert, oriented, not in acute distress HEENT- PEERLA, no acute nasal discharge Cardiovascular- S1-S2 audible, rate and rhythm regular, no murmur Respiratory- CTAB, no wheeze or rhonchi Gastrointestinal-nontender, bowel sound+. Nondistended Musculoskeletal-no acute joint swelling or tenderness or redness extremity- no leg swelling or muscle weakness noted on exam Neurological- cranial nerves intact, no acute dysarthria or dysphagia, muscle power intact, bilateral upper extremity touch sensation intact Psychiatry- denies depression or SI or HI Skin- no acute rash or purpura Labs/Xrays Labs Test 01/04/25 17:30 01/04/25 15:10 01/04/25 12:00 01/04/25 11:02 Range/Units Urine Color Light-yellow Yellow Urine Clarity Clear Clear Urine pH 6.0 5.0-9.0 Urine Specific [place] 1.016 1.001-1.035 Urine Protein Negative Negative Urine Ketones Negative Negative Urine Blood Negative Negative /uL Urine Nitrite Negative Negative Urine Bilirubin Negative Negative Urine Urobilinogen Normal Negative mg/dL Urine Leukocyte Esterase Negative Negative /uL Urine RBC 1 0 - 4 /hpf Urine Microscopic WBC < 1 0-5 /HPF Urine Squamous Epithelial Cells Few <5 /hpf Urine Bacteria Few H None Seen /hpf Urine Mucus Few None Seen Urine Glucose Normal Normal mg/dL Troponin I High Sensitivity 10 </=34 ng/L White Blood Count 11.3 H 4.4-10.8 10^3/uL Red Blood Count 4.49 4.0-5.20 10^6/uL Hemoglobin 14.9 12.2-16.2 g/dL Hematocrit 44.0 36.0-46.0 % Mean Corpuscular Volume 98.0 80.0-100.0 fL Mean Corpuscular Hemoglobin 33.1 H 28.0-32.0 pg Mean Corpuscular Hemoglobin Concent 33.8 32.0-36.0 g/dL Red Cell Distribution Width 14.8 H 11.8-14.3 % Platelet Count 343 140-450 10^3/uL Mean Platelet Volume 7.8 6.9-10.8 fL Neutrophils (%) (Auto) 76.9 37.0-80.0 % Lymphocytes (%) (Auto) 15.1 10.0-50.0 % Monocytes (%) (Auto) 7.3 0.0-12.0 % Eosinophils (%) (Auto) 0.3 0.0-7.0 % Basophils (%) (Auto) 0.4 0.0-2.0 % Neutrophils # (Auto) 8.7 H 1.6-8.6 10 ^3/uL Lymphocytes # (Auto) 1.7 0.4-5.4 10 ^3/uL Monocytes # (Auto) 0.8 0-1.3 10 ^3/uL Eosinophils # (Auto) 0 0-0.8 10 ^3/uL Basophils # (Auto) 0 0-0.2 10 ^3/uL Nucleated Red Blood Cells 0.0 % Sodium Level 138 136-145 mmol/L Potassium Level 3.7 3.5-5.1 mmol/L Chloride Level 103 98-107 mmol/L Carbon Dioxide Level 27 20-31 mmol/L Anion Gap 8 5-15 Blood Urea Nitrogen 15 9-23 mg/dL Creatinine 0.67 0.550-1.02 mg/dL Glomerular Filtration Rate Calc 107 >90 mL/min BUN/Creatinine Ratio 22.4 H 10.0-20.0 Serum Glucose 123 H 74-106 mg/dL Calcium Level 10.3 8.7-10.4 mg/dL POC Glucose 162 H 70-106 mg/dl SEPSIS Sepsis Screen Date sepsis recognized/suspect: Jan 04, 2025 Time Sepsis recognized/suspect: 1846 Recent Procedure: No On Antibiotic Therapy: No Respiratory Rate >20: No Heart Rate >90: No Temp<36 C (96.8 F) or >38.3 C: No SBP <90 or MAP <65 mmHG: No New Acute Mental Status Change: No Is the patient on CPAP, BIPAP,: No Physician Orders Admit (01/04/25 22:10) Code Status (01/04/25 22:10) Sodium Chloride Lock (Saline Lock Ns) (01/05/25 06:00) Enoxaparin Sodium (Lovenox) (01/05/25 10:00) Complete Blood Count (01/05/25 04:00) Comprehensive Metabolic Panel (01/05/25 04:00) Cardiac Diet-2gna,Lofat,Lochol (01/05/25 Breakfast) Echo 2d Mode Cardiac Dop (01/04/25 22:10) Acetaminophen Tablet (Tylenol Tablet) (01/04/25 22:15) Notify Of Changes From Base (01/04/25 22:10) Hand Twister For 24 Hours (01/04/25 22:10) Hepatic Panel (01/04/25 22:12) Thyroid Stimulating Hormone (01/04/25 22:12) Orthostatic Vital Signs (01/04/25 22:12) Electrocardigram (01/04/25 22:12) Carotid Duplx W Color Dop (01/05/25 08:00) Drug Screen (01/04/25 22:14) * Neurology Consult (01/04/25 22:14) Brain Head Wo Contrast (01/04/25 22:14) Vital Signs Date Time Temp Pulse Resp B/P (MAP) Pulse Ox O2 Delivery O2 Flow Rate FiO2 01/04/25 20:50 98.0 80 20 152/95 (114) 99 98.0 01/04/25 18:44 85 20 98 Room Air 01/04/25 18:44 98.7 85 20 139/95 (110) 98 98.7 01/04/25 15:46 98.7 87 18 145/91 (109) 97 98.7 Laboratory Tests Test 01/04/25 12:00 White Blood Count 11.3 10^3/uL (4.4-10.8) H Assessment/Plan Assessment/Plan Assessment and plan # Left arm numbness with the dizziness-rule out acute stroke/cervical radiculopathy -CT Head - negative for acute intracranial abnormality -continue aspirin 81 mg p.o. daily -continue atorvastatin 40 mg p.o. daily -pending MRI of the brain -pending carotid Doppler Pending echo 2D -ordered CT cervical spine without contrast to rule out cervical radiculopathy -pending neurology consult # presyncope, rule out cardiac arrhythmia/BPPV/dehydration/orthostatic hypotension -troponin I negative -ordered orthostatic vitals -monitor vitals #SIRS- Patient with a tachycardia and leukocytosis -urinalysis negative for UTI # hypertension -continue losartan 25 mg p.o. daily -monitor vitals # anxiety -continue monitoring clinically # depression -continue monitoring clinically -patient denied taking any medication for depression or anxiety # history of hypothyroidism -TSH-1.43 -patient denied taking any medication for hypothyroidism currently diet - Cardiac diet Goals of care, Code status full code ; discussed with >15 minutes PUD prophylaxis: Pantoprazole DVT prophylaxis: Lovenox Plan discussed with Dr. Youssef , nursing staff, Total time spent on patient evaluation, chart review, assessment and plan, discussion discussion >35 minutes Plan discussed with: Patient, Other (RN ) My Orders Orders - NOY GIL Procedure Category Date Status Time Admit ADMIT 01/04/25 Transmitted 22:10 Code Status CODE 01/04/25 Transmitted 22:10 Sodium Chloride Lock PHA 01/05/25 Logged (Saline Lock Ns) 06:00 Enoxaparin Sodium PHA 01/05/25 Logged (Lovenox) 10:00 Complete Blood Count LAB 01/05/25 Verified 04:00 Comprehensive LAB 01/05/25 Verified Metabolic Panel 04:00 Cardiac DIET 01/05/25 Transmitted Diet-2gna,Lofat,Lochol Breakfast Echo 2d Mode Cardiac US 01/04/25 Logged DOP 22:10 Acetaminophen Tablet PHA 01/04/25 Logged (Tylenol Tablet) 22:15 Notify Of Changes SONAM 01/04/25 In Process From Base 22:10 Hand Twister For SONAM 01/04/25 In Process 24 Hours 22:10 Hepatic Panel LAB 01/04/25 Logged 22:12 Thyroid Stimulating LAB 01/04/25 Logged Hormone 22:12 Orthostatic Vital ORDERS 01/04/25 Transmitted Signs 22:12 Electrocardigram EKG 01/04/25 Logged 22:12 Carotid Duplx W Color US 01/05/25 Logged DOP 08:00 Drug Screen LAB 01/04/25 Verified 22:14 * Neurology Consult CONS 01/04/25 Verified 22:14 Brain Head Wo Contrast MRI 01/04/25 Verified 22:14 Date of Service: Jan 04, 2025 Billing Provider: HUGO YOUSSEF MD Common Visit Codes: [id number] INP/OBS CARE (HIGH) Secondary Visit Codes: [id number] CARE PLAN 30 MINUTES NOY GIL Jan 04, 2025 22:16
[2025-01-04 22:40] LABS: Alanine Aminotransferase 18 U/L (7-40); Albumin 4.4 g/dL (3.2-4.8); Alkaline Phosphatase 89 U/L (46-116); Total Protein 6.9 g/dL (5.7-8.2)
[2025-01-04 22:43] LABS: Bilirubin, Direct < 0.1 mg/dL (<0.3); Bilirubin, Total 0.3 mg/dL (0.2-1.0)
[2025-01-04] MEDS: ACETAMINOPHEN 325 MG TAB PO PRN (23:03)
[2025-01-04] MEDS: ATORVASTATIN 20 MG TAB PO ONE (23:04)
[2025-01-04] MEDS: PANTOPRAZOLE 40 MG TAB PO ONE (23:04)
[2025-01-04 23:40] VITALS: BP 120/69; PULSE 74; RESP 21; TEMP 97.9; O2SAT 96
[2025-01-04 23:44] VITALS: BP 120/69; PULSE 74; RESP 20; TEMP 97.9; O2SAT 96
[2025-01-05] VITALS (8 sets, daily range): BP systolic 119–173; BP diastolic 76–99; PULSE 72–89; RESP 16–20; TEMP 97.7–98.4; O2SAT 97–99
[2025-01-05 00:16] LABS: Amphetamine Screen, Urine Neg (NEGATIVE); Barbiturate Scree,Urine Neg (NEGATIVE); Benzodiazephine Screen, Urine Neg (NEGATIVE); Opiate Scree,Urine Neg (NEGATIVE); Phencyclidine Screen, Urine Neg (NEGATIVE)
[2025-01-05 00:17] LABS: Cannabinoid Screen, Urine Neg (NEGATIVE); Cocaine Screen, Urine Neg (NEGATIVE)
[2025-01-05] MEDS ORDERED: LOSA-533 PO (03:33)
[2025-01-05] MEDS ORDERED: FLUT1SPR5 (03:33)
[2025-01-05] MEDS ORDERED: ZOFR4T PO (03:35)
[2025-01-05] MEDS ORDERED: ACET1CAP14 PO (03:35)
[2025-01-05 05:35] LABS: Hematocrit 39.4 % (36.0-46.0); Hemoglobin 13.2 g/dL (12.2-16.2); Mean Corpuscular Hemoglobin 33.0 pg (28.0-32.0); Mean Corpuscular Volume 99.0 fL (80.0-100.0); Nucleated Red Blood Cells % 0.0 %
[2025-01-05 05:45] LABS: Alanine Aminotransferase 13 U/L (7-40); Albumin 3.5 g/dL (3.2-4.8); Alkaline Phosphatase 73 U/L (46-116); Anion Gap 7 (5-15); BUN/Creatinine Ratio 28.2 (10.0-20.0); Blood Urea Nitrogen 20 mg/dL (9-23); Carbon Dioxide 27 mmol/L (20-31); Chloride 105 mmol/L (98-107); Glucose 102 mg/dL (74-106); Magnesium 2.2 mg/dL (1.6-2.6); Potassium 3.9 mmol/L (3.5-5.1); Sodium 139 mmol/L (136-145)
[2025-01-05 05:46] LABS: Bilirubin, Total 0.4 mg/dL (0.2-1.0)
[2025-01-05] MEDS: SODIUM CHLOR 0.9% PF (SALINE LOCK) 10ML VIAL/SYR IV SCH (05:53)
[2025-01-05] MEDS: PANTOPRAZOLE 40 MG TAB PO SCH (05:53)
[2025-01-05 06:00] LABS: Calcium 8.6 mg/dL (8.7-10.4); Total Protein 5.6 g/dL (5.7-8.2)
--- NOTE | 2025-01-05 08:36 | DVH ---
EXAMINATION: MRI BRAIN HEAD WO CONTRAST INDICATION: Rule out stroke COMPARISON: CT scan of the head performed on 01/04/2025. TECHNIQUE: Multiplanar, multisequence magnetic resonance imaging of the brain was performed without the use of i ntravenous contrast. FINDINGS: No evidence of acute infarct. No intracranial hemorrhage. No mass effect. The ventricles and sulci are normal in size for age. Clear basal cisterns. Flow voids in the major intracranial vessels are maintained. No abnormality of the orbits. Paranasal sinuses and mastoid air cells are clear. No abnormality of the visualized osseous structures and extracranial soft tissues. IMPRESSION: 1. No acute infarct, intracranial hemorrhage, mass effect, or hydrocephalus.
[2025-01-05] MEDS: LOSARTAN POTASSIUM 25 MG TAB PO SCH (10:21)
[2025-01-05] MEDS: ENOXAPARIN SOD 40 MG/0.4 ML SYRINGE SC SCH (10:21)
[2025-01-05] MEDS: ONDANSETRON HCL 4 MG/2 ML VIAL IV PRN (10:56)
[2025-01-05] MEDS: KETOROLAC TROMETH 30 MG/ML 1ML VIAL IV PRN (10:56)
--- NOTE | 2025-01-05 11:37 | DVH ---
EXAM: CT CERVICAL WITHOUT CONTRAST INDICATION: Ruled out cervical radiculopathy EXAM DATE: 01/05/2025 08:13 AM COMPARISON: None TECHNIQUE: Multiple axial CT images of the cervical spine were obtained using bone algorithm. Sagitta l and coronal reformatting was done. Bone and soft tissue windows were reviewed. Radiation Dose Information: CT Dose: CTDI volume is 18.97 mGy. Dose-length product is 437.29 mGy*cm FINDINGS: The cervical alignment is intact. Reversal of the cervical lordosis. No acute cervical spine fracture is identified. The vertebral body heights are intact. No suspicious osseous lesions are identified. Multilevel intervertebral disc space narrowing. No significant spinal stenosis. Multilevel neural for aminal stenosis. There is no prevertebral soft tissue swelling. Lung apices are clear. IMPRESSION: 1. No evidence of acute cervical spine fracture or traumatic malalignment. All CT scans at this medical facility are performed using dose modulation techniques as appropriate t o a performed exam including the following: Automated exposure control was utilized; adjustment of th e MA and/or KV according to patient size; and use of iterative reconstruction technique.
--- NOTE | 2025-01-05 11:54 | DVH ---
Indication: Rule out stroke Technique: Real-time ultrasound images of the neck vessels with sesay-scale, color and wave Doppler we re obtained. Comparison: None Findings: Mild atherosclerotic plaque. The following peak systolic velocities were recorded in cm/sec: Right internal carotid: 112 Right common carotid: 93 Right external carotid: 123 Right internal/common carotid ratio: 1.2 Left internal carotid: 115 Left common carotid: 97 Left external carotid: 64 Left internal/common carotid ratio: 1.2 Right vertebral artery: Patent with normal antegrade direction of flow. Left vertebral artery: Patent with normal antegrade direction of flow. Impression: No hemodynamically significant stenosis by velocity criteria.
--- NOTE | 2025-01-05 13:54 | DVHPNRES ---
Progress Note Date Seen: Jan 05, 2025 Resident Creating Document: RAO PARISI RESIDENT Medical Necessity Reason Pt with a Central, PICC or Fol: No Subjective Review of Systems 49 years old female with past medical history of hypertension, history of hypothyroidism( not taking any medication), anxiety, depression came in with the complaints of headache and left-sided neck pain. Patient reports that the headache was 9/10 intensity, throbbing in nature, associated with nausea, dizziness, and blurring of vision. She had aspirin for it but it did not help. She also complains of left-sided neck pain with left arm numbness . She rates the pain as 9/10 intensity, gradual onset, no relieving factor, radiating to the left arm with numbness. On further inquiry patient also reports drooling in the left side of the mouth and feeling weak. Patient gives a history that she had paralysis in 2018 on her left side of the face and body which has now resolved. She also reports of a fall that enema hurt her neck and since 2021 she has been having this pain. PMH: Hypertension, hypothyroidism- not taking any medication, anxiety, depression PSH: x3, , appendectomy family history: Reviewed and noncontributory Past social history: Patient lives with and kids, patient denies taking any alcohol, taking any illicit drugs, smoking. Home medication: Losartan 25 mg ROS: Patient who was seen and examined by me in the bedside. Overnight events reviewed. Patient reports she feels nauseous And the numbness in her left neck and left arm is still there. Rest of the ROS is negative Objective vital signs Vital Sign Date Time Temp Pulse Resp B/P (MAP) Pulse Ox O2 Delivery O2 Flow Rate FiO2 01/05/25 10:21 151/98 01/05/25 09:30 98.4 86 18 99 98.4 01/05/25 08:14 Room Air* 0 21 Total Intake and Output 01/04/25 01/04/25 01/05/25 15:00 23:00 07:00 Intake Total 200 ml Balance 200 ml medications Current Medications Medications Dose Ordered Sig/[place] Route Start Time Stop Time Status Last Admin Dose Admin Sodium Chloride 10 ml Q8HR IV 01/05/25 06:00 01/05/25 05:53 10 ML Enoxaparin Sodium 40 mg DAILY SC 01/05/25 10:00 01/05/25 10:21 40 MG Acetaminophen 650 mg Q6HP PRN PO 01/04/25 22:15 01/05/25 05:03 650 MG Aspirin 81 mg DAILY PO 01/05/25 10:00 01/05/25 10:21 81 MG Atorvastatin Calcium 40 mg HS PO 01/05/25 22:00 Pantoprazole Sodium 40 mg DAILY@0600 PO 01/05/25 06:00 01/05/25 05:53 40 MG Losartan Potassium 25 mg DAILY PO 01/05/25 10:00 01/05/25 10:21 25 MG Ondansetron HCl 4 mg Q4HPRN PRN IV 01/05/25 10:30 01/05/25 10:56 4 MG Ketorolac Tromethamine 30 mg Q6HPRN PRN IV 01/05/25 10:30 01/10/25 10:29 01/05/25 10:56 30 MG Examination Pt is lying on bed General Appearance: Alert, Oriented X3, Cooperative, Not in acute distress HEENT: TMJ joint was tender on palpation. Tenderness in the cervical region, left side of the neck and shoulder Respiratory: Clear to auscultation, Normal air movement, No added sounds Cardiovascular: Regular rate, Normal S1, Normal S2, No murmurs Abdominal: Active bowel sounds, Soft, no distention, no tenderness Extremities: No edema, Normal pulses, No tenderness/swelling Skin: No Significant rash, except past surgical scars Neuro: Normal speech, normal strength, power, decreased sensation on left inner arm Psych/Mental Status: Mental status NL, Mood NL Nurse was there as control operator flow coat during examination laboratory and microbiology Laboratory Tests 01/05/25 04:39 Test 01/05/25 04:39 Range/Units Serum Glucose 102 74-106 mg/dL Labs and/or images reviewed: Labs reviewed by me, Image(s) reviewed by me Problem List/Assessment/Plan Problem List/Assessment/Plan # Left arm numbness with dizziness likely musculoskeletal pain/ cervical radiculopathy # Possible fibromyalgia # acute stroke ruled out -CT head negative for acute intracranial abnormality -Continue aspirin 81 mg p.o. daily -Continue atorvastatin 40 mg p.o. daily -MRI of brain shows No evidence of acute cervical spine fracture or traumatic malalignment. -CT cervical spine without contrast to rule out cervical radiculopathy, -Carotid Doppler shows No hemodynamically significant stenosis -Toradol given for pain -Zofran given for nausea -Flexeril for muscle pain -Patient counseled about needing a massage #Presyncope, ruled out cardiac arrhythmia/ dehydration/ orthostatic hypotension -Troponin I negative -Ordered orthostatic vitals -Monitor vitals # SIRS -patient with tachycardia and leukocytosis -urinalysis negative for UTI # hypertension uncontrolled -Continue losartan 25 mg p.o. daily -Monitor vitals #Depression/Anxiety no signs of suicidal/homicidal ideations -Continue monitoring clinically -Patient denied taking any medication for depression or anxiety #History of hypothyroidism -TSH is 1.43 -Patient denied taking any medication for hypothyroidism currently GI prophylaxis: Protonix DVT prophylaxis: Lovenox Diet: as tolerated Goals of care discussed with the patient for more than 27 minutes: Full code status Case discussed with Dr. Marcus patient and nurse. Plan discussed with: Patient, Other (rn) Date of Service: Jan 05, 2025 Billing Provider: DAKOTA MARCUS MD Common Visit Codes: [id number] INP/OBS CARE(HIGH) RAO PARISI RESIDENT Jan 05, 2025 13:54 ZAC MONDRAGON RESIDENT Jan 05, 2025 14:51 DAKOTA MARCUS MD Jan 05, 2025 20:53
--- NOTE | 2025-01-05 16:14 | ECG ---
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
[2025-01-05] MEDS: CYCLOBENZAPRINE HCL 10 MG TAB PO ONE (17:31)
[2025-01-05] MEDS: CYANOCOBALAMIN (B-12) 1000 MCG/1 ML VIAL IM ONE (17:57)
--- NOTE | 2025-01-05 19:52 | DVHSR ---
APPROVED REPORT EXAM: Two-dimensional and M-mode echocardiogram with Doppler and color Doppler. Blood Pressure: 119/80 mmHg INDICATION Heart Failure RISK FACTORS Height: 5'1", Weight: 141 DIMENSIONS LVDd4.8 (3.8-5.7cm)LA (2D)3.5 (1.9-4.0cm)Aortic Root2.8 (2.0-3.7cm) LVDs2.2 (2.5-4.0cm)LA (MM) (1.9-4.0cm)Aortic Cusp Exc1.8 (1.5-2.0cm) EF (%) 85.0 (55-70%)Rt. Atrium3.7 (1.9-4.0cm)Asc. Aorta3.6 cm IVSd0.9 (0.7-1.1cm)RV (D)3.9 (1.8-2.4cm) PWd0.8 (0.7-1.1cm) Mitral Valve MitralMitral Stenosis E wave0.82m/sMV Mean GR.mmHg A wave0.80m/sMV Peak GR.mmHg E/A ratio1.02D MVAcm2 DECEL [id number] 1/2 Timems Aortic Valve Aortic ValveAortic Stenosis V11.70m/Genevieve Mean GR.14mmHg V22.62m/Genevieve Peak GR.27mmHg LVOT Diameter2.0 (1.8-2.4cm)Doppler AVA2.04cm2 AI P 1/2 Cxmq030.50ms Pulmonic Valve V21.43m/s Tricuspid Valve TR Velocity2.76m/s [id number] Conclusion LV EF IS 70% AND IS NORMAL NORMAL VALVES NORMAL RV FUNCTION AND SIZE NO EFFUSION MILD AORTIC REGURGITATION
[2025-01-05] MEDS: ATORVASTATIN 20 MG TAB PO SCH (21:12)
[2025-01-05] MEDS: CYCLOBENZAPRINE HCL 10 MG TAB PO PRN (21:12)
[2025-01-06] VITALS (8 sets, daily range): BP systolic 0–156; BP diastolic 79–102; PULSE 65–85; RESP 16–20; TEMP 97.6–98.6; O2SAT 98–99
[2025-01-06 05:37] LABS: Hematocrit 39.0 % (36.0-46.0); Hemoglobin 13.2 g/dL (12.2-16.2); Mean Corpuscular Hemoglobin 33.5 pg (28.0-32.0); Mean Corpuscular Volume 98.9 fL (80.0-100.0); Nucleated Red Blood Cells % 0.1 %
[2025-01-06 09:41] LABS: Chloride 104 mmol/L (98-107); Potassium 4.1 mmol/L (3.5-5.1); Sodium 140 mmol/L (136-145)
[2025-01-06 09:42] LABS: Anion Gap 8 (5-15); Calcium 9.7 mg/dL (8.7-10.4); Carbon Dioxide 28 mmol/L (20-31)
[2025-01-06 09:47] LABS: BUN/Creatinine Ratio 21.8 (10.0-20.0); Blood Urea Nitrogen 12 mg/dL (9-23); Glucose 96 mg/dL (74-106)
--- NOTE | 2025-01-06 14:47 | DVHPNRES ---
Progress Note Date Seen: Jan 06, 2025 Resident Creating Document: RAO PARISI RESIDENT Medical Necessity Reason Pt with a Central, PICC or Fol: No Subjective Review of Systems 49 years old female with past medical history of hypertension, history of hypothyroidism( not taking any medication), anxiety, depression came in with the complaints of headache and left-sided neck pain. Patient reports that the headache was 9/10 intensity, throbbing in nature, associated with nausea, dizziness, and blurring of vision. She had aspirin for it but it did not help. She also complains of left-sided neck pain with left arm numbness . She rates the pain as 9/10 intensity, gradual onset, no relieving factor, radiating to the left arm with numbness. On further inquiry patient also reports drooling in the left side of the mouth and feeling weak. Patient gives a history that she had paralysis in 2019 on her left side of the face and body which has now resolved. She also reports of a fall that enema hurt her neck and since 2021 she has been having this pain. PMH: Hypertension, hypothyroidism- not taking any medication, anxiety, depression PSH: x3, , appendectomy family history: Reviewed and noncontributory Past social history: Patient lives with and kids, patient denies taking any alcohol, taking any illicit drugs, smoking. Home medication: Losartan 25 mg ROS: Patient who was seen and examined by me in the bedside. Overnight events reviewed. patient reports having a headache in the occipital region for/ 10 in intensity. She also complains of jaw numbness, blurring of vision and left-sided neck pain yesterday night. She reports that she feels like her neck region is swollen and adds that her dizziness and palpitations as still there. Yesterday night she also had epigastric pain6/ 10 and felt warm all over body. Rest of the ROS is negative Objective vital signs Vital Sign Date Time Temp Pulse Resp B/P (MAP) Pulse Ox O2 Delivery O2 Flow Rate FiO2 01/06/25 12:36 97.9 82 16 129/91 (104) 98 97.9 01/06/25 08:00 Room Air* 0 21 Total Intake and Output 01/05/25 01/05/25 01/06/25 15:00 23:00 07:00 Intake Total 250 ml 540 ml Balance 250 ml 540 ml medications Current Medications Medications Dose Ordered Sig/[place] Route Start Time Stop Time Status Last Admin Dose Admin Sodium Chloride 10 ml Q8HR IV 01/05/25 06:00 01/06/25 05:33 10 ML Enoxaparin Sodium 40 mg DAILY SC 01/05/25 10:00 01/06/25 09:09 40 MG Acetaminophen 650 mg Q6HP PRN PO 01/04/25 22:15 01/06/25 11:41 650 MG Aspirin 81 mg DAILY PO 01/05/25 10:00 01/06/25 09:08 81 MG Atorvastatin Calcium 40 mg HS PO 01/05/25 22:00 01/05/25 21:12 40 MG Pantoprazole Sodium 40 mg DAILY@0600 PO 01/05/25 06:00 01/06/25 05:33 40 MG Losartan Potassium 25 mg DAILY PO 01/05/25 10:00 01/06/25 09:09 25 MG Ondansetron HCl 4 mg Q4HPRN PRN IV 01/05/25 10:30 01/05/25 10:56 4 MG Ketorolac Tromethamine 30 mg Q6HPRN PRN IV 01/05/25 10:30 01/10/25 10:29 01/06/25 13:00 30 MG Cyclobenzaprine HCl 10 mg Q8HPRN PRN PO 01/05/25 15:00 01/05/25 21:12 10 MG Examination Pt is lying on bed General Appearance: Alert, Oriented X3, Cooperative, Not in acute distress HEENT: mild TMJ joint tenderness on palpation. mild tenderness in the cervical region, left shoulder Respiratory: Clear to auscultation, Normal air movement, No added sounds Cardiovascular: Regular rate, Normal S1, Normal S2, No murmurs Abdominal: Active bowel sounds, Soft, no distention, no tenderness Extremities: No edema, Normal pulses, No tenderness/swelling Skin: No Significant rash, except past surgical scars Neuro: Normal speech, normal strength, power, decreased sensation on left inner arm Psych/Mental Status: Mental status NL, Mood NL Nurse was there as gas welder during examination laboratory and microbiology Laboratory Tests 01/06/25 04:10 Test 01/06/25 04:10 Range/Units Serum Glucose 96 74-106 mg/dL Labs and/or images reviewed: Labs reviewed by me, Image(s) reviewed by me (rn) Problem List/Assessment/Plan Problem List/Assessment/Plan # Left arm numbness with dizziness likely musculoskeletal pain/ cervical radiculopathy # Possible fibromyalgia # acute stroke ruled out -CT head negative for acute intracranial abnormality -Continue aspirin 81 mg p.o. daily -Continue atorvastatin 40 mg p.o. daily -MRI of brain shows No evidence of acute cervical spine fracture or traumatic malalignment. -CT cervical spine without contrast to rule out cervical radiculopathy, -Carotid Doppler shows No hemodynamically significant stenosis -Toradol given for pain -Zofran given for nausea -Flexeril for muscle pain -Patient counseled about needing a massage -Neurology consult, pending #Presyncope, ruled out cardiac arrhythmia/ dehydration/ orthostatic hypotension -Troponin I negative -Ordered orthostatic vitals -Monitor vitals # SIRS -patient with tachycardia and leukocytosis -urinalysis negative for UTI # hypertension uncontrolled -Continue losartan 25 mg p.o. daily -Monitor vitals #Depression/Anxiety no signs of suicidal/homicidal ideations -Continue monitoring clinically -Patient denied taking any medication for depression or anxiety #History of hypothyroidism -TSH is 1.43 -Patient denied taking any medication for hypothyroidism currently GI prophylaxis: Protonix DVT prophylaxis: Lovenox Diet: as tolerated Goals of care discussed with the patient for more than 27 minutes: Full code status Case discussed with Dr. Marcus patient and nurse. Plan discussed with: Patient, Other (rn) Date of Service: Jan 06, 2025 Billing Provider: DAKOTA MARCUS MD Common Visit Codes: [id number] INP/OBS CARE(HIGH) RAO PARISI RESIDENT Jan 06, 2025 14:47 DAKOTA MARCUS MD Jan 06, 2025 18:15
--- NOTE | 2025-01-06 21:43 | DVHINCON2 ---
Date of service: Jan 06, [address] Moscoso Reason for Consultation Left arm numbness History of Present Illness Ms. Canada is a 49 years old right-handed female with a history of hypertension, she came to the [facility] on 01/04/2025 with a chief complaint of headache and left chest pain. At this time, she is alert and fully oriented, she provided the following history without bilingual staff's help On 01/04/2025, she developed intense left-sided headache, followed by left chest pain, and then numbness in the left chest, shoulder, neck, and whole left upper extremity, along with left arm weakness, she also had nausea, discomfort in the stomach. In the hospital, all these symptoms persist intermittently, with last one earlier today. In 08/2018, the patient has had similar symptoms (headache, chest pain, numbness, left arm weakness) She reports having chest pain sometimes Urinalysis, 01/04/2025: Unremarkable UDS, 01/04/2025: Unremarkable CBC, 01/06/2025: Unremarkable CMP, 01/05/2025: Unremarkable Vitamin B12, 01/05/2025: 367 folic acid, 01/05/25: 3.21 TTE, 01/05/2025: LV EF IS 70% AND IS NORMAL NORMAL VALVES NORMAL RV FUNCTION AND SIZE NO EFFUSION MILD AORTIC REGURGITATION Carotid Doppler, 01/05/2025: No hemodynamically significant stenosis by velocity criteria MRI head, 01/04/2025: No acute infarct, intracranial hemorrhage, mass effect, or hydrocephalus Past Medical History Hypertension Past Surgical History Appendectomy Family History: Patient reports no known family medical history. Family History No major medical problems Social History She denies a history of tobacco smoking, alcohol or drug abuse Allergies: Coded Allergies: NO KNOWN ALLERGIES (Unverified , 07/04/22) Home Meds Active Scripts Nitrofurantoin (Nitrofurantoin) 100 Mg Cap, 1 CAP PO BID, #10 CAP Prov:BRETT VILLELA MD 01/30/23 Acetaminophen (Tylenol) 325 Mg Tb, 500 MG PO TIDPRN PRN for 10 Days, #47 TAB Prov:GREGG SINGH DO 07/08/22 Famotidine (PEPCID TABLET) 20 Mg Tb, 1 TAB PO BID for 15 Days, #30 TAB 3 Refills Prov:GREGG SINGH DO 07/08/22 Reported Medications Ondansetron Odt 4MG Tab (ZOFRAN PO) 4 Mg Tb, 4 MG PO, TAB ODT TAB-DISSOLVE IN MOUTH, THEN SWALLOW 01/05/25 Acetaminophen (Tylenol) 325 Mg Cap, 325 MG PO, CAP 01/05/25 Fluticasone Propionate (Nasal) (Flonase Allergy Relief) 50 Mcg/Act Spr, 50 MCG NA DAILY, SPRAY 01/05/25 Losartan Potassium (Losartan Potassium) 25 Mg Tab, 1 TAB PO DAILY, #90 TAB 1 Refill 01/05/25 Loratadine (CLARITIN TABLET) 10 Mg Tb, 1 TAB PO DAILY 01/29/23 Meclizine Hcl (Meclizine Hcl) 25 Mg Chw, 1 TAB PO TID 01/29/23 Aspirin (Aspirin Low Dose) 81 Mg Tab, 1 TAB PO DAILY 01/29/23 Discontinued Reported Medications Omeprazole (Omeprazole Dr) 20 Mg Cap, 1 CAP PO BID 01/29/23 Methimazole (Methimazole) 5 Mg Tab, 1 TAB PO DAILY 01/29/23 Levothyroxine Sodium (Levothyroxine Sodium) 50 Mcg Tab, 1 TAB PO DAILY 01/29/23 Sumatriptan Succinate (Sumatriptan Succinate) 25 Mg Tab, PO 01/29/23 Furosemide (Furosemide) 20 Mg Tab, 1 TAB PO BID 01/29/23 Current Medications Current Medications Medications (Trade) Dose Ordered Sig/[place] Route PRN Reason Start Time Stop Time Status Last Admin Atorvastatin Calcium (Lipitor) 40 mg HS PO 01/05/25 22:00 01/05/25 21:12 Review of Systems As above, the other systems are negative Vital Signs Vital Signs Date Time Temp Pulse Resp B/P (MAP) Pulse Ox O2 Delivery O2 Flow Rate FiO2 01/06/25 21:00 98.6 83 20 125/84 (98) 98 98.6 01/06/25 20:13 Room Air* 0 21 Physical Exam GENERAL EXAM: General: the patient is well developed and nourished. No acute distress. HEENT: Normocephalic, neck is supple, no carotid bruits. No mass. RESPIRATORY: Normal respiratory effort with symmetrical lung expansion. Lungs clear to auscultation. CARDIOVASCULAR: Regular rate and rhythm with no murmurs. S1, S2. ABDOMEN: Soft, nontender, normal bowel sound NEUROLOGICAL: MENTAL STATUS: Awake and alert. Oriented to person, place, time and general circumstances. Able to give personal history. SPEECH, LANGUAGE, HIGHER CORTICAL FUNCTION: no aphasia or dysathria. CRANIAL NERVES: #2: Intact visual taylor to confrontation. The optic discs were sharp. Retinal background was uniformly pink in appearance. There was no hemorrhages or exudates. #3,4,6: Pupils are equal, round and reactive. EOMs full and conjugate. Mild bilateral gaze evoked nystagmus. #5: Diminished pinprick and light touch in the left face. Mandibular strength intact. #7: Facial muscles symmetrical and strength intact. #8: Hearing grossly normal to voice. #9,10: Uvula and soft palate rise in the midline. Swallow and voice are normal. #11: Trapezius and sternomastoid strength intact bilaterally. #12: Tongue midline. No fasciculations or atrophy. SENSATION: Diminished pinprick and light touch in the left extremities, torso MOTOR: Normal tone in the upper and lower extremity. Normal muscle bulk. No fasciculations. No abnormal movements or posturing. Muscle strength of the major groups in the extremities is 5/5 except 4/5 in the left gripping, no drift. REFLEXES: Deep tendon reflexes normal and symmetrical. No pathological reflexes. CEREBELLAR/COORDINATION: Finger to nose is normal bilaterally. GAIT/STATION: deferred. Labs/Diagnostic Data Labs Test 01/06/25 04:10 01/05/25 04:39 01/04/25 17:30 01/04/25 15:10 Range/Units White Blood Count 9.3 4.4-10.8 10^3/uL Red Blood Count 3.94 L 4.0-5.20 10^6/uL Hemoglobin 13.2 12.2-16.2 g/dL Hematocrit 39.0 36.0-46.0 % Mean Corpuscular Volume 98.9 80.0-100.0 fL Mean Corpuscular Hemoglobin 33.5 H 28.0-32.0 pg Mean Corpuscular Hemoglobin Concent 33.9 32.0-36.0 g/dL Red Cell Distribution Width 15.1 H 11.8-14.3 % Platelet Count 300 140-450 10^3/uL Mean Platelet Volume 7.9 6.9-10.8 fL Neutrophils (%) (Auto) 70.3 37.0-80.0 % Lymphocytes (%) (Auto) 21.0 10.0-50.0 % Monocytes (%) (Auto) 8.0 0.0-12.0 % Eosinophils (%) (Auto) 0.4 0.0-7.0 % Basophils (%) (Auto) 0.3 0.0-2.0 % Neutrophils # (Auto) 6.5 1.6-8.6 10 ^3/uL Lymphocytes # (Auto) 1.9 0.4-5.4 10 ^3/uL Monocytes # (Auto) 0.7 0-1.3 10 ^3/uL Eosinophils # (Auto) 0 0-0.8 10 ^3/uL Basophils # (Auto) 0 0-0.2 10 ^3/uL Nucleated Red Blood Cells 0.1 % Sodium Level 140 136-145 mmol/L Potassium Level 4.1 3.5-5.1 mmol/L Chloride Level 104 98-107 mmol/L Carbon Dioxide Level 28 20-31 mmol/L Anion Gap 8 5-15 Blood Urea Nitrogen 12 9-23 mg/dL Creatinine 0.55 0.550-1.02 mg/dL Glomerular Filtration Rate Calc 112 >90 mL/min BUN/Creatinine Ratio 21.8 H 10.0-20.0 Serum Glucose 96 74-106 mg/dL Calcium Level 9.7 8.7-10.4 mg/dL Hemoglobin A1c 5.3 <5.7 % A1C Magnesium Level 2.2 1.6-2.6 mg/dL Total Bilirubin 0.4 0.2-1.0 mg/dL Aspartate Amino Transferase (AST) 12 L 13-40 U/L Alanine Aminotransferase (ALT) 13 7-40 U/L Alkaline Phosphatase 73 46-116 U/L Total Protein 5.6 L 5.7-8.2 g/dL Albumin 3.5 3.2-4.8 g/dL Vitamin B12 Level 367 211-911 pg/mL Vitamin D 25-Hydroxy 33.4 30.0-100 ng/mL Folic Acid 13.21 >5.38 ng/mL Urine Color Light-yellow Yellow Urine Clarity Clear Clear Urine pH 6.0 5.0-9.0 Urine Specific [place] 1.016 1.001-1.035 Urine Protein Negative Negative Urine Ketones Negative Negative Urine Blood Negative Negative /uL Urine Nitrite Negative Negative Urine Bilirubin Negative Negative Urine Urobilinogen Normal Negative mg/dL Urine Leukocyte Esterase Negative Negative /uL Urine RBC 1 0 - 4 /hpf Urine Microscopic WBC < 1 0-5 /HPF Urine Squamous Epithelial Cells Few <5 /hpf Urine Bacteria Few H None Seen /hpf Urine Mucus Few None Seen Urine Glucose Normal Normal mg/dL Urine Opiates Screen Neg NEGATIVE Urine Fentanyl Screen Neg NEGATIVE Urine Barbiturates Screen Neg NEGATIVE Urine Phencyclidine Screen Neg NEGATIVE Urine Amphetamines Screen Neg NEGATIVE Urine Benzodiazepines Screen Neg NEGATIVE Urine Cocaine Screen Neg NEGATIVE Urine Cannabinoids Screen Neg NEGATIVE Troponin I High Sensitivity 10 </=34 ng/L Test 01/04/25 12:00 01/04/25 11:02 Range/Units Direct Bilirubin < 0.1 <0.3 mg/dL Thyroid Stimulating Hormone (TSH) 1.43 0.55-4.78 uIU/mL POC Glucose 162 H 70-106 mg/dl Assessment Intermittent headache, chest pain, numbness and left chest, shoulder, neck and the arm, weakness in the left arm, with unknown etiology, less likely they are secondary to due to neurologic symptoms Plan/Recommendation Monitoring Supportive treatment Telemetry Current management More recommendation per clinical course Progress: Poor This medical document was created using an electronic medical record system with [email or web address] dictation system. Although this document has been carefully reviewed, there may still be some phonetic and typographical errors. These areas are purely typographical due to imperfections of the software programs, and do not reflect any compromise in the patient's medical care. Plan discussed with: Patient, Other ROQUE DURHAM MD Jan 06, 2025 21:43
[2025-01-07 01:00] VITALS: BP 141/93; PULSE 78; RESP 20; TEMP 98.1; O2SAT 98
[2025-01-07 05:00] VITALS: BP_SYST 132; BP_SYST 147; BP_SYST 151; BP_DIAS 106; BP_DIAS 90; BP_DIAS 98; PULSE 73; RESP 20; TEMP 97.5; O2SAT 97
[2025-01-07 08:00] VITALS: PULSE 67; RESP 17; O2SAT 98
[2025-01-07 08:53] VITALS: BP 136/93; PULSE 67; RESP 17; TEMP 97.7; O2SAT 98
[2025-01-07] MEDS ORDERED: IBUP-1454 PO (10:33)
[2025-01-07] MEDS ORDERED: CYCL-611 PO (10:33)
[2025-01-07] MEDS ORDERED: CYAN-17 PO (10:36)
--- NOTE | 2025-01-07 10:58 | DVHDSRES ---
Discharge Summary Date of Admission Resident Creating Document: RAO PARISI RESIDENT Jan 04, 2025 at 22:10 Date of Discharge: Jan 07, 2025 Admitting Diagnosis # Left arm numbness with dizziness likely musculoskeletal pain/ cervical radiculopathy Labs/Diagnostic Data: Laboratory Results Test 01/06/25 04:10 01/05/25 04:39 01/04/25 17:30 01/04/25 15:10 White Blood Count 9.3 10^3/uL (4.4-10.8) Red Blood Count 3.94 10^6/uL (4.0-5.20) Hemoglobin 13.2 g/dL (12.2-16.2) Hematocrit 39.0 % (36.0-46.0) Mean Corpuscular Volume 98.9 fL (80.0-100.0) Mean Corpuscular Hemoglobin 33.5 pg (28.0-32.0) Mean Corpuscular Hemoglobin Concent 33.9 g/dL (32.0-36.0) Red Cell Distribution Width 15.1 % (11.8-14.3) Platelet Count 300 10^3/uL (140-450) Mean Platelet Volume 7.9 fL (6.9-10.8) Neutrophils (%) (Auto) 70.3 % (37.0-80.0) Lymphocytes (%) (Auto) 21.0 % (10.0-50.0) Monocytes (%) (Auto) 8.0 % (0.0-12.0) Eosinophils (%) (Auto) 0.4 % (0.0-7.0) Basophils (%) (Auto) 0.3 % (0.0-2.0) Neutrophils # (Auto) 6.5 10 ^3/uL (1.6-8.6) Lymphocytes # (Auto) 1.9 10 ^3/uL (0.4-5.4) Monocytes # (Auto) 0.7 10 ^3/uL (0-1.3) Eosinophils # (Auto) 0 10 ^3/uL (0-0.8) Basophils # (Auto) 0 10 ^3/uL (0-0.2) Nucleated Red Blood Cells 0.1 % Sodium Level 140 mmol/L (136-145) Potassium Level 4.1 mmol/L (3.5-5.1) Chloride Level 104 mmol/L (98-107) Carbon Dioxide Level 28 mmol/L (20-31) Anion Gap 8 (5-15) Blood Urea Nitrogen 12 mg/dL (9-23) Creatinine 0.55 mg/dL (0.550-1.02) Glomerular Filtration Rate Calc 112 mL/min (>90) BUN/Creatinine Ratio 21.8 (10.0-20.0) Serum Glucose 96 mg/dL (74-106) Calcium Level 9.7 mg/dL (8.7-10.4) Hemoglobin A1c 5.3 % A1C (<5.7) Magnesium Level 2.2 mg/dL (1.6-2.6) Total Bilirubin 0.4 mg/dL (0.2-1.0) Aspartate Amino Transferase (AST) 12 U/L (13-40) Alanine Aminotransferase (ALT) 13 U/L (7-40) Alkaline Phosphatase 73 U/L (46-116) Total Protein 5.6 g/dL (5.7-8.2) Albumin 3.5 g/dL (3.2-4.8) Vitamin B12 Level 367 pg/mL (211-911) Vitamin D 25-Hydroxy 33.4 ng/mL (30.0-100) Folic Acid 13.21 ng/mL (>5.38) Urine Color Light-yellow (Yellow) Urine Clarity Clear (Clear) Urine pH 6.0 (5.0-9.0) Urine Specific [place] 1.016 (1.001-1.035) Urine Protein Negative (Negative) Urine Ketones Negative (Negative) Urine Blood Negative /uL (Negative) Urine Nitrite Negative (Negative) Urine Bilirubin Negative (Negative) Urine Urobilinogen Normal mg/dL (Negative) Urine Leukocyte Esterase Negative /uL (Negative) Urine RBC 1 /hpf (0 - 4) Urine Microscopic WBC < 1 /HPF (0-5) Urine Squamous Epithelial Cells Few /hpf (<5) Urine Bacteria Few /hpf (None Seen) Urine Mucus Few (None Seen) Urine Glucose Normal mg/dL (Normal) Urine Opiates Screen Neg (NEGATIVE) Urine Fentanyl Screen Neg (NEGATIVE) Urine Barbiturates Screen Neg (NEGATIVE) Urine Phencyclidine Screen Neg (NEGATIVE) Urine Amphetamines Screen Neg (NEGATIVE) Urine Benzodiazepines Screen Neg (NEGATIVE) Urine Cocaine Screen Neg (NEGATIVE) Urine Cannabinoids Screen Neg (NEGATIVE) Troponin I High Sensitivity 10 ng/L (</=34) Test 01/04/25 12:00 01/04/25 11:02 Direct Bilirubin < 0.1 mg/dL (<0.3) Thyroid Stimulating Hormone (TSH) 1.43 uIU/mL (0.55-4.78) POC Glucose 162 mg/dl (70-106) Other Laboratory Tests 01/06/25 04:10 Brief Hx & Hospital Course: 61 years old female with past medical history of hypertension, history of hypothyroidism (not taking any medication), anxiety, depression came in with the complaints of headache and left-sided neck pain. Patient reports that the headache was 9/10 intensity, throbbing in nature, associated with nausea, dizziness, and blurring of vision. She had aspirin for it but it did not help. She also complains of left-sided neck pain with left arm numbness . She rates the pain as 9/10 intensity, gradual onset, no relieving factor, radiating to the left arm with numbness. On further inquiry patient also reports drooling in the left side of the mouth and feeling weak. Patient gives a history that she had paralysis in 2019 on her left side of the face and body which has now resolved. She also reports of a fall that enema hurt her neck and since 2021 she has been having this pain. PMH: Hypertension, hypothyroidism- not taking any medication, anxiety, depression PSH: x3, , appendectomy family history: Reviewed and noncontributory Past social history: Patient lives with and kids, patient denies taking any alcohol, taking any illicit drugs, smoking. Home medication: Losartan 25 mg Brief history of hospitalization:49-year-old female came in with left numbness dizziness likely fibromyalgia /musculoskeletal pain/cervical radiculopathy. Acute stroke was ruled out. CT head was negative for acute intracranial abnormality hold. We started the patient on aspirin 81 mg p.o. daily and continued atorvastatin 40 mg p.o. daily. MRI of the brain was done which showed no evidence of acute cervical spine fracture or traumatic malalignment. CT cervical spine without contrast to rule out cervical radiculopathy showed No evidence of acute cervical spine fracture or traumatic malalignment. Doppler shows no hemodynamically significant stenosis either. Toradol was given for her pain and Zofran for nausea. We added Flexeril for muscle pain and patient was counseled about needing massage to help with her pain. Neurology consult was done who suggested supportive treatment continued pain management. For patient's presyncopal, we ruled out cardiac arrhythmia/dehydration/ orthostatic hypotension. Her troponin I levels were negative and we ordered orthostatic vitals which were normal as well. we continued monitoring her vitals and for patient's uncontrolled hypertension we continued home medication losartan 25 mg p.o. daily. patient had sirs without end-organ damage with tachycardia and leukocytosis urine analysis was negative for UTI. For patient's depression anxiety with no signs of suicidal or homicidal ideations we continued monitoring clinically in ask the patient regarding any medications at home which she denied. Patient is now stable for discharge. She has been counseled extensively for 26 minutes regarding the need for exercise, change in diet with low-sodium for her high blood pressure, continuation of home medications, and regarding massages that might help relax her muscles. She will be discharged with home medication and Flexeril tablets as needed for muscle pain. She communicated understanding. Patient has also been has been counseled on coming to the DC clinic to Dr. Inman on Sunday. She is agreed to the above. Physical exam on the day of discharge: General Appearance: Alert, Oriented X3, Cooperative, Not in acute distress HEENT: mild TMJ joint tenderness, mild tenderness in the cervical region on palpation Respiratory: Clear to auscultation, Normal air movement, No added sounds Cardiovascular: Regular rate, Normal S1, Normal S2, No murmurs Abdominal: Active bowel sounds, Soft, no distention, no tenderness Extremities: No edema, Normal pulses, No tenderness/swelling Skin: No Significant rash, except past surgical scars Neuro: Normal speech, normal strength, power, decreased sensation on left inner arm Psych/Mental Status: Mental status NL, Mood NL Nurse was there as social services assistant during examination Goals of care discussed with the patient for 20 minutes; full code Case discussed with Dr. Carrington Consults/Reason for consult Neurology for suspected stroke Operations or Procedures CHEST RADIOGRAPH IMPRESSION: No pulmonary airspace consolidation. ATED BY: UMESH HUBER MD DICTATED DATE/TIME: 01/04/251239 SIGNED BY: UMESH HUBER MD SIGNED DATE/TIME: 07/13/[address] HEAD WITHOUT CONTRAST IMPRESSION: No intracranial hemorrhage or mass effect. EXAMINATION: MRI BRAIN HEAD WO CONTRAST IMPRESSION: No acute infarct, intracranial hemorrhage, mass effect, or hydrocephalus. ATED BY: ELMIRA AGUILAR MD DICTATED DATE/TIME: 01/05/25 0834 EXAM: CT CERVICAL WITHOUT CONTRAST IMPRESSION: All CT scans at this medical facility are performed using dose modulation techniques as appropriate to a performed exam including the following: Automated exposure control was utilized; adjustment of the MA and/or KV according to patient size; and use of iterative reconstruction technique. PROCEDURE(s): CARCL - CAROTID DUPLX W COLOR DOP Impression: No hemodynamically significant stenosis by velocity criteria. Condition at Discharge: Stable Final Diagnosis/Problems List #Left arm numbness with dizziness likely musculoskeletal pain/ cervical radiculopathy # Possible fibromyalgia # acute stroke ruled out # Presyncope, ruled out cardiac arrhythmia/ dehydration/ orthostatic hypotension # SIRS, without end organ damage # hypertension uncontrolled #Depression/Anxiety no signs of suicidal/homicidal ideations # History of hypothyroidism Discharge Disposition: Home Discharge Instruct/Medications Diet: Consistent carbohydrate, Cardiac 2g Na,low cholest Activity: No Restrictions, As Tolerated Follow Up/Referral: follow up with Dr. Inman on Sunday (pm) in D/C clinic Medications: continue home medications tab Flexeril 10mg as needed Scheduled Aspirin (Aspirin Low Dose), 1 TAB PO DAILY, (Reported) Cyanocobalamin (B12), 1,000 MCG PO DAILY Famotidine (Pepcid Tablet), 1 TAB PO BID Fluticasone Propionate (Nasal) (Flonase Allergy Relief), 50 MCG NA DAILY, (Reported) Loratadine (Claritin Tablet), 1 TAB PO DAILY, (Reported) Losartan Potassium (Losartan Potassium), 1 TAB PO DAILY, (Reported) Meclizine Hcl (Meclizine Hcl), 1 TAB PO TID, (Reported) Nitrofurantoin (Nitrofurantoin), 1 CAP PO BID Scheduled PRN Acetaminophen (Tylenol), 500 MG PO TIDPRN PRN Cyclobenzaprine HCl (Cyclobenzaprine Hydrochlo), 10 MG PO Q8HPRN PRN Ibuprofen (Ibuprofen), 1 TAB PO TID PRN Miscellaneous Medications Acetaminophen (Tylenol), 325 MG PO, (Reported) Ondansetron Odt 4MG Tab (Zofran Po), 4 MG PO, (Reported) Discontinued Medications Furosemide (Furosemide), 1 TAB PO BID, (Reported) Levothyroxine Sodium (Levothyroxine Sodium), 1 TAB PO DAILY, (Reported) Methimazole (Methimazole), 1 TAB PO DAILY, (Reported) Omeprazole (Omeprazole Dr), 1 CAP PO BID, (Reported) Sumatriptan Succinate (Sumatriptan Succinate), PO, (Reported) Discharge Statement: "Patient was advised to return to the ER or call 911 if any headaches, dizziness, shortness of breath, chest pain, abdominal pain, bleeding, fevers, or worsening of medical condition. Patient was counseled about treatment plan, medications, possible side effects, patientverbalized understanding. All questions were answered to the best of my ability. This discharge took greater then 30 minutes in planning, reviewing documentation, counseling the patient, and discussing with other team members." ASSESSMENT ASSESSMENT Assessment # Left arm numbness with dizziness likely musculoskeletal pain/ cervical radiculopathy # Possible fibromyalgia # Acute stroke ruled out # Presyncope, ruled out cardiac arrhythmia/ dehydration/ orthostatic hypotension # SIRS, without end organ damage # Hypertension uncontrolled #Depression/Anxiety no signs of suicidal/homicidal ideations # History of hypothyroidism Addendum Addendum Addendum I was physically present for the [place] portions of the service provided to patient by THE RESIDENT. I have reviewed the documentation, discussed the case with resident and agree with the resident's documentation except as noted. Also the patient's clinical case was discussed with the patient's nurse. This medical document was created using an electronic medical record system with computerized dictation system. Although this document has been carefully reviewed, there might still be some phonetic and typographical errors. These areas are purely typographical due to imperfections of the software programs, and do not reflect any compromise in the patient's medical care. Late signature. Date of Service: Jan 07, 2025 Billing Provider: AYSHA CARRINGTON MD Common Visit Codes: 12789-XBH/OBS DISCH DAY >30min Secondary Visit Codes: 86297-[id number] CARE PLAN 30 MINUTES (20 minutes) RAO PARISI RESIDENT Jan 07, 2025 10:58 ZAC MONDRAGON RESIDENT Jan 07, 2025 18:29 AYSHA CARRINGTON MD Jan 10, 2025 05:21
[2025-01-07 12:00] VITALS: BP 137/94; PULSE 67; RESP 17; TEMP 36.5; O2SAT 98
[2025-01-07 13:05] VITALS: BP 133/91; PULSE 99; RESP 20; TEMP 97.8; O2SAT 93
[2025-01-09 08:07] LABS: Anti-Nuclear Antibody Direct Negative (Negative)
== END 2025-01-07 13:25 | disposition home or self-care (01) | DRG 48 ==
LOC: ER 10:36 → OVERFLOW 22:10 → TELE-WESTW 23:58 → WEST WING 01-06 17:47
PROVIDERS: ADMIT Internal Medicine; ATTEND Emergency Medicine
DX: M54.12 Radiculopathy, cervical region (principal); R65.10 Systemic inflammatory response syndrome (SIRS) of non-infectious origin without acute organ dysfunction; I10 Essential (primary) hypertension; E03.9 Hypothyroidism, unspecified; F32.A Depression, unspecified; F41.9 Anxiety disorder, unspecified; D72.829 Elevated white blood cell count, unspecified; R00.0 Tachycardia, unspecified; M54.2 Cervicalgia; M79.7 Fibromyalgia; Z79.899 Other long term (current) drug therapy; Z79.82 Long term (current) use of aspirin; Z90.49 Acquired absence of other specified parts of digestive tract
CPT/HCPCS: 36415; 70450; 70551; 71046; 72125; 80048; 80053; 80076; 80307; 81001; 82306; 82607; 82746; 82962; 83036; 83735; 84443; 84484; 85025; 85652; 86038; 86141; 93005; 93306; 93886; G0378; J1885; J2405